=== PATIENT | female | born 1980 | race American Indian/Alaskan Native ===

== ENCOUNTER 2017-03-23 10:14 | Emergency (ER) | payer MEDICAID ==
[2017-03-23 11:17] LABS: Hematocrit 35.1 % (30.3-42.9); Hemoglobin 11.6 gm/dl (10.1-14.3); Mean Corpuscular HGB Conc 33 % (30-34); Mean Corpuscular Hemoglobin 29 pg (28-32); Mean Corpuscular Volume 89 fl (79-97); Red Blood Count 3.93 M/mm3 (3.65-5.03); Red Cell Distribution Width 14.5 % (13.2-15.2)
[2017-03-23 11:26] LABS: Alanine Aminotransferase 14 units/L (7-56); Albumin 3.7 g/dL (3.9-5); Alkaline Phosphatase 53 units/L (35-129); Anion Gap 18 mmol/L; BUN/Creatinine Ratio 15; Blood Urea Nitrogen 9 mg/dL (7-17); Calcium 8.5 mg/dL (8.4-10.2); Carbon Dioxide 23 mmol/L (22-30); Chloride 99.6 mmol/L (98-107); Glucose 87 mg/dL (65-100); Lipase 13 units/L (13-60); Potassium 4.3 mmol/L (3.6-5.0); Sodium 136 mmol/L (137-145); Total Protein 7.5 g/dL (6.3-8.2)
[2017-03-23 12:12] LABS: Basophils % (Manual) 0 % (0.0-1.8); Blastocytes % (Manual) 0 %; Diff Status Complete; Platelet Clumps 1+; Platelet Count 262 K/mm3 (140-440); Platelet Estimate Consistent w Auto; RBC Morphology Normal; White Blood Count 9.7 K/mm3 (4.5-11.0)
--- NOTE | 2017-03-23 14:48 | Ultrasound Report ---
ULTRASOUND OB LESS THAN 14 WEEKS ULTRASOUND OB LESS THAN 14 WEEKS ADD GESTATION ULTRASOUND OB TRANSVAGINAL HISTORY: Abdominal pain during , pelvic pain, cramping. COMPARISON: None. TECHNIQUE: Transabdominal and transvaginal ultrasound with color doppler interrogation. FINDINGS: Uterus: The uterus measures 11 x 6 x 7 cm. No uterine mass is identified. A twin gestation is identified. Fetus A has a heart rate of 165 beats per minute and estimated gestational age of 9 weeks, 0 days. Fetus B has a heart rate of 160 beats per minute and estimated gestational age of 9 weeks, 0 days. There is no evidence for subchorionic hemorrhage. The placenta is not clearly appreciated at this time. Amniotic fluid volume appears normal. Right ovary: 3.3 x 1.3 x 2.1 cm. There are 2 cysts in the right ovary measuring 1.5 cm and 1.9 cm. Left ovary: Not visualized. No pelvic fluid or mass is identified. Normal color doppler interrogation. IMPRESSION: Viable twin gestation as described. No acute abnormality is appreciated. Right ovarian cysts. The left ovary is not visualized.
--- NOTE | 2017-03-23 17:11 | Emergency Department Report ---
HPI - General Chief Complaint: Abdominal Pain Time Seen by Provider: 03/23/17 16:31 - HPI HPI: This is a 36-year-old female who presents to the emergency department with complaint of some lower abdominal pain and lower back pain has been going on for the past few days and the patient is about 8 weeks . With this she has G 12 P2 with 6 miscarriages and 4 previous abortions. The patient's VB NET DEVELOPER is Dr. Alisson Sarabia and she went to see Dr. Sarabia today but instead saw one of her partners and was told to come to the emergency department for further evaluation. She found out she was originally from a home test. She is currently taking vitamins. She has not taken anything for her symptoms prior to presentation. She denies any dysuria or vaginal bleeding. No recent travel or sick contacts at home. She denies any other past medical history. ED Past Medical Hx - Past Medical History Previous Medical History?: No - Surgical History Past Surgical History?: No - Social History Smoking Status: Never Smoker Substance Use Type: None - Medications Home Medications: Home Medications Medication Instructions Recorded Confirmed Last Taken Type Acetaminophen/Codeine [Tylenol #3] 1 tab PO Q6H PRN #10 tab 07/21/14 Unknown Rx Nitrofurantoin Saline/M-Cryst 100 mg PO Q12HR #14 capsule 07/21/14 Unknown Rx [Macrobid] ED Review of Systems ROS: Stated complaint: PREG,ABDOMINAL PAIN, LEAKAGE Other details as noted in HPI Comment: All other systems reviewed and negative Constitutional: denies: chills, fever Eyes: denies: eye pain, eye discharge, vision change ENT: denies: ear pain, throat pain Respiratory: denies: cough, shortness of breath, wheezing Cardiovascular: denies: chest pain, palpitations Gastrointestinal: abdominal pain. denies: vomiting Genitourinary: denies: urgency, dysuria, discharge Musculoskeletal: back pain. denies: arthralgia Skin: denies: rash, lesions Neurological: denies: headache, weakness, paresthesias Physical Exam - Physical Exam Vital Signs: Vital Signs 03/23/17 10:32 Temperature 98.1 F Pulse Rate 77 Blood Pressure 130/79 O2 Sat by Pulse 99 Oximetry Physical Exam: GENERAL: The patient is well-developed well-nourished. HENT: Normocephalic. Atraumatic. Patient has moist mucous membranes. EYES: Extraocular motions are intact. Pupils equal reactive to light bilaterally. NECK: Supple. Trachea is midline. CHEST/LUNGS: Clear to auscultation. There is no respiratory distress noted. HEART/CARDIOVASCULAR: Regular. There is no tachycardia. There is no murmur. ABDOMEN: Abdomen is soft, nontender. No guarding or rebound tenderness. Patient has normal bowel sounds. There is no abdominal distention. SKIN: Skin is warm and dry. NEURO: The patient is awake, alert, and oriented. The patient is cooperative. The patient has no focal neurologic deficits. The patient has normal speech and gait. MUSCULOSKELETAL: There is no tenderness or deformity. There is no limitation range of motion. There is no evidence of acute injury. ED Course Vital Signs 03/23/17 10:32 Temperature 98.1 F Pulse Rate 77 Blood Pressure 130/79 O2 Sat by Pulse 99 Oximetry ED Medical Decision Making - Lab Data Result diagrams: 03/23/17 10:47 03/23/17 10:47 - Radiology Data Radiology results: report reviewed ULTRASOUND OB LESS THAN 14 WEEKS ULTRASOUND OB LESS THAN 14 WEEKS ADD GESTATION ULTRASOUND OB TRANSVAGINAL HISTORY: Abdominal pain during , pelvic pain, cramping. COMPARISON: None. TECHNIQUE: Transabdominal and transvaginal ultrasound with color doppler interrogation. FINDINGS: Uterus: The uterus measures 11 x 6 x 7 cm. No uterine mass is identified. A twin gestation is identified. Fetus A has a heart rate of 165 beats per minute and estimated gestational age of 9 weeks, 0 days. Fetus B has a heart rate of 160 beats per minute and estimated gestational age of 9 weeks, 0 days. There is no evidence for subchorionic hemorrhage. The placenta is not clearly appreciated at this time. Amniotic fluid volume appears normal. Right ovary: 3.3 x 1.3 x 2.1 cm. There are 2 cysts in the right ovary measuring 1.5 cm and 1.9 cm. Left ovary: Not visualized. No pelvic fluid or mass is identified. Normal color doppler interrogation. IMPRESSION: Viable twin gestation as described. No acute abnormality is appreciated. Right ovarian cysts. The left ovary is not visualized. Transcribed By: TTR Dictated By: ASHTYN AGUILERA JR, MD Electronically Authenticated By: ASHTYN AGUILERA JR, MD Signed Date/Time: 03/23/17 1444 - Medical Decision Making This patient was originally sent in for evaluation of lower abdominal pain while . The patient says that she believes she was sent in because they thought she might have a ruptured sac as she said that she was feeling moisture within the vagina. However ultrasound shows a viable twin gestation and some right ovarian cysts. Everything appears intact and appropriate. Her labs are unremarkable including no urinary tract infection. She is Jas on vitamins and has good follow-up with Dr. Alisson Sarabia. Vital signs stable. She appears safe for discharge home at this time. She has been encouraged to follow up with her VB NET DEVELOPER and return to the emergency Department with any worsening of her symptoms, vaginal bleeding, or any acute distress. - Differential Diagnosis , threatened miscarriage, spontaneous miscarriage, UTI Critical Care Time: No Critical care attestation.: If time is entered above; I have spent that time in minutes in the direct care of this critically ill patient, excluding procedure time. ED Disposition Clinical Impression: Abdominal pain Qualifiers: Abdominal location: lower abdomen, unspecified Qualified Code(s): R10.30 - Lower abdominal pain, unspecified Qualifiers: Weeks of gestation: 9 weeks Qualified Code(s): Z3A.09 - 9 weeks gestation of Twin gestation in first trimester Qualifiers: Multiple gestation type: unspecified Qualified Code(s): O30.001 - Twin , unspecified number of placenta and unspecified number of amniotic sacs, first trimester Disposition: - TO HOME OR SELFCARE Is pt being admited?: No Condition: Stable Instructions: (ED), Abdominal Pain (ED) Additional Instructions: Please follow-up with your VB NET DEVELOPER in the next few days. Continue with your vitamins. You can take Tylenol every 4 hours, using weight-based dosing, as needed for discomfort. Do not take any other medications that are not prescribed by a physician. Return to the emergency department with any worsening of your symptoms or any acute distress. Referrals: PRIMARY MD CLYDE [Primary Care Provider] - 3-5 Days ALISSON SARABIA MD [Staff Physician] - 3-5 Days Forms: Work/School Release Form(ED) Time of Disposition: 18:35
[2017-03-23 17:41] VITALS: BP 109/69
[2017-03-23 18:14] LABS: Bilirubin,Urine NEG (Negative); Blood,Urine NEG (Negative); Ketones,Urine NEG (Negative); Leukocyte Esterase,Urine NEG (Negative); Nitrite,Urine NEG (Negative); Protein,Urine <15 mg/dL mg/dL (Negative); Urobilinogen,Urine < 2.0 mg/dL (<2.0)
== END 2017-03-23 19:06 | disposition home or self-care (01) ==
LOC: ED 10:14
DX: O26.891 Other specified pregnancy related conditions, first trimester (principal); R10.30 Lower abdominal pain, unspecified; Z3A.09 9 weeks gestation of pregnancy
CPT/HCPCS: 36415; 76801; 76802; 76817; 80053; 81001; 83690; 84702; 85007; 85025; 99284

== ENCOUNTER 2017-04-11 15:58 | Outpatient (CLI) | payer MEDICAID ==
--- NOTE | 2017-04-11 17:36 | Ultrasound Report ---
FINAL REPORT EXAM: US ABDOMEN LIMITED HISTORY: R UPPER QUADRANT ABDOMINAL PAIN , patient reportedly with first-trimester twins TECHNIQUE: Ultrasound examination of the abdomen PRIORS: None. FINDINGS: The visible portion of the following structures reveal: Liver: No focal lesion.No enlargement. Gallbladder: No pericholecystic fluid.No evidence of wall thickening.No calculus. Common bile duct: Normal caliber. Pancreas: No focal abnormality in the visible portion. Right kidney: No hydronephrosis.No solid mass.No definite calculus. Ascites: None Abdominal aorta: Normal caliber. IVC: Normal caliber. IMPRESSION: No evidence of acute pathology
== END 2017-04-11 15:59 | disposition home or self-care (01) ==
LOC: US 15:58
PROVIDERS: ATTEND Obstetrics & Gynecology
DX: O30.001 Twin pregnancy, unspecified number of placenta and unspecified number of amniotic sacs, first trimester (principal); O26.892 Other specified pregnancy related conditions, second trimester; R10.11 Right upper quadrant pain; Z3A.11 11 weeks gestation of pregnancy
CPT/HCPCS: 76705

== ENCOUNTER 2017-06-21 15:15 | Inpatient (IN) | payer MEDICAID ==
[2017-06-21] MEDS ORDERED: XYLOCAINE 2% INFILTRATI ONE (16:52)
[2017-06-21] MEDS ORDERED: COLACE PO PRN (17:32)
[2017-06-21] MEDS ORDERED: ZOFRAN IV PRN (17:32)
[2017-06-21] MEDS ORDERED: DEEP SEA NS PRN (17:32)
[2017-06-21] MEDS ORDERED: BENADRYL PO PRN (17:32)
--- NOTE | 2017-06-21 17:40 | History and Physical Report ---
History of Present Illness Date of admission: 06/21/17 15:15 Chief complaint: sent from [facility] clinic History of present illness: Pt is a 37 year old -Serbian female 10 0 2 RINA 10/26/17 by LMP c/w 9 wk [facility] sono with [place]-Di twin IUP who was incidentally noted to have a shortened cervix on 06/20/17 of 9.9 mm during routine obstetric visit. She was then seen on 06/21/17 by [facility] who noted a cervical length of 5 mm with dynamic changes with recommendation for hospitalization for the remainder of the and NICU consult. She denies contractions but does report pelvic pressure but denies vaginal bleeding or leakage of fluid. She has had care at [facility] since 9 wks complicated by morbid obesity, h/o gestational diabetes with normal early glucose screen, and GERD. [facility] Past History Past Medical History: GERD, other (Obesity ) Past Surgical History: no surgical history [employer] History: chlamydia (remote from this ) Family/Genetic History: cancer Social history: no significant social history - Obstetrical History Expected Date of Delivery: 10/26/17 Actual Gestation: 21 Week(s) 6 Day(s) : 13 Para: 2 Hx # Term Pregnancies: 2 Number of Pregnancies: 0 Spontaneous Abortions: 10 Induced : 0 Number of Living Children: 2 Medications and Allergies Allergies Allergy/AdvReac Type Severity Reaction Status Date / Time No Known Allergies Allergy Unverified 07/21/14 16:43 Home Medications Medication Instructions Recorded Confirmed Last Taken Type Acetaminophen/Codeine [Tylenol #3] 1 tab PO Q6H PRN #10 tab 07/21/14 Unknown Rx Nitrofurantoin [place]/M-Cryst 100 mg PO Q12HR #14 capsule 07/21/14 Unknown Rx [Macrobid] Active Meds: Active Medications Acetaminophen (Tylenol) 650 mg PO Q4H PRN PRN Reason: Pain MILD(1-3)/Fever >100.5/MCELROY Al Hydrox/Mg Hydrox/Simethicone (Alum-Mag Hydrox-Simeth [phone]/5ml) 30 ml PO Q6H PRN PRN Reason: Indigestion Diphenhydramine HCl (Benadryl) 25 mg PO Q6H PRN PRN Reason: Itching Docusate Sodium (Colace) 100 mg PO Q12H PRN PRN Reason: Constipation Lactated Ringer's (Lactated Ringers) 1,000 mls @ 125 mls/hr IV DIRECT JB Multivitamins/Iron/Calcium ( Vitamin) 1 each PO QDAY JB Ondansetron HCl (Zofran) 4 mg IV Q6H PRN PRN Reason: Nausea And Vomiting Simethicone (Mylicon) 80 mg PO Q6H PRN PRN Reason: Gas pain Sodium Chloride (Deep Sea) 2 spray NS Q4H PRN PRN Reason: Congestion Zolpidem Tartrate (Ambien) 10 mg PO ONCE PRN PRN Reason: Sleep Review of Systems All systems: negative - Physical Exam Abdomen: Positive: soft (gravid, obese) Genitourinary (Female): Positive: normal external genitalia Uterus: Positive: enlarged (gravid ) Extremities: Positive: normal - Obstetrical FHR: auscultation normal Uterine Contraction Monitor Mode: External Results All other labs normal. Assessment and Plan A: [place]-Di Twin IUP at 21w6d Incompetent Cervix Morbid Obesity H/o Gestational Diabetes GERD P: Admit to antepartum service NICU consult Complete bedrest Continue to closely monitor maternal and status
[2017-06-21 20:25] LABS: Basophils % (Auto) 0.2 % (0.0-1.8); Eosinophils # (Auto) 0.2 K/mm3 (0.0-0.4); Eosinophils % (Auto) 2.4 % (0.0-4.3); Hemoglobin 11.2 gm/dl (10.1-14.3); Lymphocytes # (Auto) 2.2 K/mm3 (1.2-5.4); Lymphocytes % (Auto) 22.4 % (13.4-35.0); Mean Corpuscular HGB Conc 33 % (30-34); Mean Corpuscular Hemoglobin 30 pg (28-32); Mean Corpuscular Volume 90 fl (79-97); Monocytes # (Auto) 0.4 K/mm3 (0.0-0.8); Platelet Count 318 K/mm3 (140-440); Red Blood Count 3.78 M/mm3 (3.65-5.03); Red Cell Distribution Width 14.4 % (13.2-15.2)
[2017-06-21] MEDS: AMBIEN PO PRN (21:09)
[2017-06-21] MEDS: COLACE PO SCH (21:09)
[2017-06-21] MEDS: LACTATED RINGERS 1,000 ML IV SCH (21:12)
[2017-06-22] MEDS: LACTATED RINGERS 1,000 ML IV SCH ×3 (04:05→20:31)
--- NOTE | 2017-06-22 06:42 | Consultation ---
History of Present Illness Consult date: 06/22/17 Past History Past Medical History: GERD, other (Obesity ) Past Surgical History: no surgical history ERP SPECIALIST History: chlamydia (remote from this ) Family/Genetic History: cancer - Obstetrical History : 13 Medications and Allergies Allergies Allergy/AdvReac Type Severity Reaction Status Date / Time No Known Allergies Allergy Unverified 07/21/14 16:43 Home Medications Medication Instructions Recorded Confirmed Last Taken Type Vit-Fe Fumar-FA [ 1 tab PO QDAY 06/21/17 06/21/17 3 Days Ago History Vitamin] ~06/18/17 Active Meds: Active Medications Acetaminophen (Tylenol) 650 mg PO Q4H PRN PRN Reason: Pain MILD(1-3)/Fever >100.5/MCELROY Al Hydrox/Mg Hydrox/Simethicone (Alum-Mag Hydrox-Simeth [phone]/5ml) 30 ml PO Q6H PRN PRN Reason: Indigestion Diphenhydramine HCl (Benadryl) 25 mg PO Q6H PRN PRN Reason: Itching Docusate Sodium (Colace) 100 mg PO BID [facility] Last Admin: 06/21/17 21:09 Dose: 100 mg Lactated Ringer's (Lactated Ringers) 1,000 mls @ 125 mls/hr IV DIRECT [facility] Last Admin: 06/22/17 04:05 Dose: 125 mls/hr Multivitamins/Iron/Calcium ( Vitamin) 1 each PO QDAY [facility] Ondansetron HCl (Zofran) 4 mg IV Q6H PRN PRN Reason: Nausea And Vomiting Simethicone (Mylicon) 80 mg PO Q6H PRN PRN Reason: Gas pain Sodium Chloride (Deep Sea) 2 spray NS Q4H PRN PRN Reason: Congestion Zolpidem Tartrate (Ambien) 10 mg PO ONCE PRN PRN Reason: Sleep Last Admin: 06/21/17 21:09 Dose: 10 mg - Vital Signs Vital signs: Vital Signs Temp Pulse Resp BP 97.6 F 89 16 103/65 06/21/17 18:42 06/21/17 18:42 06/21/17 18:42 06/21/17 18:42 Temp Pulse Resp BP Pulse Ox 97.4 F L 82 18 114/58 95 06/22/17 04:06 06/22/17 04:08 06/22/17 04:06 06/22/17 04:08 06/22/17 04:08 Results Result Diagrams: 06/21/17 18:20 Abnormal lab results 06/21/17 Range/Units 18:20 Seg Neutrophils % 71.0 H (40.0-70.0) % All other labs normal. Assessment and Plan AMFM Pt seen Full consult to follow
--- NOTE | 2017-06-22 08:27 | Progress Note ---
Assessment and Plan A: [place]-Di Twin IUP at 22w0d Incompetent Cervix- cervical length 5 mm on 06/21/17 Morbid Obesity GERD P: Continue inpatient management with complete bed rest. Follow up M recommendations. Consult appreciated. Subjective - Subjective Date of service: 06/22/17 Principal diagnosis: [place]-Di Twin IUP at 22w0d, Incompetent Cervix, Morbid Obesity Interval history: No overnight events. Patient reports: movement normal, no new complaints, no loss of fluid, no vaginal bleeding, no contractions Objective - Vital Signs Vital Signs: Vital Signs - 12hr 06/21/17 06/21/17 06/21/17 20:32 20:41 20:42 Temperature Pulse Rate 102 H 102 H 112 H Respiratory Rate Blood Pressure Blood Pressure [Left] O2 Sat by Pulse 100 86 90 Oximetry 06/21/17 06/21/17 06/21/17 20:47 20:52 20:55 Temperature Pulse Rate 101 H 108 H 90 Respiratory Rate Blood Pressure 119/71 Blood Pressure [Left] O2 Sat by Pulse 98 97 Oximetry 06/21/17 06/21/17 06/21/17 20:57 21:02 21:07 Temperature Pulse Rate 96 H 92 H 97 H Respiratory Rate Blood Pressure Blood Pressure [Left] O2 Sat by Pulse 96 97 97 Oximetry 06/21/17 06/21/17 06/22/17 21:12 21:17 00:18 Temperature 97.2 F L Pulse Rate 84 100 H Respiratory 20 Rate Blood Pressure Blood Pressure [Left] O2 Sat by Pulse 96 96 Oximetry 06/22/17 06/22/17 06/22/17 00:20 00:21 04:06 Temperature 97.4 F L Pulse Rate 100 H 104 H Respiratory 18 Rate Blood Pressure 111/72 Blood Pressure [Left] O2 Sat by Pulse 97 Oximetry 06/22/17 06/22/17 06/22/17 04:08 07:38 07:41 Temperature 98.2 F Pulse Rate 82 89 89 Respiratory 22 Rate Blood Pressure 114/58 104/71 Blood Pressure 104/71 [Left] O2 Sat by Pulse 95 Oximetry - Exam Breasts: deferred Cardiovascular: Regular rate Lungs: Clear to auscultation Abdomen: Present: soft (obese, gravid ) Uterus: Present: normal (enlarged ) FHR: auscultation normal Uterine Contraction Monitor Mode: External Uterine Contraction Pattern: Absent Uterine Tone Measurement Phase: Resting - Labs Labs: Abnormal Labs 06/21/17 18:20 Seg Neutrophils % 71.0 H Laboratory Results - last 24 hr 06/21/17 06/21/17 18:20 18:20 WBC 9.7 RBC 3.78 Hgb 11.2 Hct 34.0 MCV 90 MCH 30 MCHC 33 RDW 14.4 Plt Count 318 Lymph % (Auto) 22.4 [place] % (Auto) 4.0 Eos % (Auto) 2.4 Baso % (Auto) 0.2 Lymph # 2.2 [place] # 0.4 Eos # 0.2 Baso # 0.0 Seg Neutrophils % 71.0 H Seg Neutrophils # 6.9 Blood Type A POSITIVE Antibody Screen Negative
[2017-06-22] MEDS: TYLENOL PO PRN ×2 (15:59→20:35)
[2017-06-22] MEDS: COLACE PO SCH (16:00)
[2017-06-22] MEDS: PRENATAL VITAMIN PO SCH (16:00)
[2017-06-22] MEDS: AMBIEN PO PRN (23:34)
[2017-06-23] MEDS: LACTATED RINGERS 1,000 ML IV SCH ×3 (04:08→22:53)
--- NOTE | 2017-06-23 08:14 | Progress Note ---
Assessment and Plan : [place]-Di Twin IUP at 22w0d Incompetent Cervix- cervical length 5 mm on 06/21/17 Morbid Obesity GERD P: Continue inpatient management. NICU consultation to discuss resuscitation. Steroids for FLM to be administered based on the patient's preference for resuscitation Subjective - Subjective Principal diagnosis: [place]-Di Twin IUP at 22w0d, Incompetent Cervix, Morbid Obesity Interval history: No complaints. Good movement x2 Denies contractions or pelvic pressure. Patient reports: movement normal, no new complaints, no loss of fluid, no vaginal bleeding, no contractions Objective - Vital Signs Vital Signs: Vital Signs - 12hr 06/22/17 06/22/17 06/23/17 23:35 23:38 04:50 Temperature 97.3 F L 98.2 F Pulse Rate 79 79 90 Respiratory 12 13 Rate Blood Pressure 114/73 Blood Pressure 114/73 126/61 [Left] 06/23/17 04:54 Temperature Pulse Rate 90 Respiratory Rate Blood Pressure 126/61 Blood Pressure [Left] - Exam Abdomen: Present: soft Extremities: normal - Labs Labs: Abnormal Labs 06/21/17 18:20 Seg Neutrophils % 71.0 H
[2017-06-23] MEDS: COLACE PO SCH (11:25)
[2017-06-23] MEDS: PRENATAL VITAMIN PO SCH (11:25)
[2017-06-23] MEDS: AMBIEN PO PRN (22:39)
[2017-06-24] MEDS: TYLENOL PO PRN (06:28)
[2017-06-24] MEDS: LACTATED RINGERS 1,000 ML IV SCH ×3 (06:50→22:16)
--- NOTE | 2017-06-24 10:39 | Progress Note ---
Assessment and Plan Twin IUP at 22 2/7 weeks with EDC 10/26/17. Patient wants to shower, but was told not to. Would prefer patient to be past 23 weeks. Continue current management. Subjective - Subjective Date of service: 06/24/17 Principal diagnosis: [place]-Di Twin IUP at 22w0d, Incompetent Cervix, Morbid Obesity Patient reports: movement normal, no new complaints, no loss of fluid, no vaginal bleeding, no contractions Objective - Vital Signs Vital Signs: Vital Signs - 12hr 06/23/17 06/23/17 06/23/17 22:40 22:44 22:45 Temperature 96.5 F L Pulse Rate 75 77 76 Respiratory 13 Rate Blood Pressure 114/68 Blood Pressure 114/68 [Left] O2 Sat by Pulse 100 Oximetry 06/23/17 06/24/17 22:50 04:24 Temperature Pulse Rate 78 92 H Respiratory Rate Blood Pressure 104/57 Blood Pressure [Left] O2 Sat by Pulse 100 Oximetry - Exam Breasts: deferred Cardiovascular: Regular rate, Normal S1, Normal S2 Lungs: Clear to auscultation, Normal air movement Abdomen: Present: normal appearance, soft, normal bowel sounds Uterus: Present: normal, fundal height above umbilicus FHR: auscultation normal Uterine Contraction Pattern: Absent - Labs Labs: Abnormal Labs 06/21/17 18:20 Seg Neutrophils % 71.0 H
[2017-06-24] MEDS: COLACE PO SCH ×2 (14:57→22:16)
[2017-06-24] MEDS: PRENATAL VITAMIN PO SCH (14:58)
[2017-06-24] MEDS: AMBIEN PO PRN (22:17)
[2017-06-25] MEDS: LACTATED RINGERS 1,000 ML IV SCH ×3 (06:19→22:03)
[2017-06-25] MEDS: COLACE PO SCH ×2 (08:36→22:00)
[2017-06-25] MEDS: PRENATAL VITAMIN PO SCH (08:36)
--- NOTE | 2017-06-25 08:54 | Progress Note ---
Assessment and Plan [place]-Di Twin IUP at 22w2d Incompetent Cervix- cervical length 0.5cm 06/21 Morbid Obesity GERD P: Will Continue inpatient management. Steroids for FLM to be administered based on the patient's preference for resuscitation ( desires at 23 weeks) Subjective - Subjective Date of service: 06/25/17 Principal diagnosis: [place]-Di Twin IUP at 22w+d, Incompetent Cervix, Morbid Obesity Patient reports: movement normal, no new complaints, no loss of fluid, no vaginal bleeding, no contractions Objective - Vital Signs Vital Signs: Vital Signs - 12hr 06/24/17 06/24/17 06/24/17 22:20 22:25 22:30 Temperature 98.2 F Pulse Rate 85 79 85 Respiratory 18 Rate Blood Pressure 116/62 Blood Pressure 116/62 [Left] O2 Sat by Pulse 97 98 99 Oximetry 06/25/17 06/25/17 06/25/17 02:18 02:21 06:12 Temperature 98 F Pulse Rate 88 88 81 Respiratory 16 Rate Blood Pressure 102/51 102/57 Blood Pressure 102/81 [Left] O2 Sat by Pulse Oximetry 06/25/17 06/25/17 06/25/17 06:22 06:27 08:37 Temperature 98.7 F Pulse Rate 101 H 84 92 H Respiratory 16 Rate Blood Pressure 106/56 Blood Pressure 102/57 [Left] O2 Sat by Pulse 95 97 100 Oximetry - Exam Breasts: normal Cardiovascular: Regular rate, Normal S1 Lungs: Clear to auscultation, Normal air movement Abdomen: Present: normal appearance, soft, normal bowel sounds. Absent: distention, tenderness, guarding Vulva: both: normal Uterus: Present: normal, firm. Absent: bogginess, tenderness FHR: auscultation normal Uterine Contraction Monitor Mode: External Uterine Contraction Pattern: Absent Uterine Tone Measurement Phase: Resting - Labs Labs: Abnormal Labs 06/21/17 18:20 Seg Neutrophils % 71.0 H
[2017-06-25] MEDS: AMBIEN PO PRN (22:00)
[2017-06-26] MEDS: LACTATED RINGERS 1,000 ML IV SCH ×2 (05:30→16:05)
--- NOTE | 2017-06-26 09:06 | Progress Note ---
Assessment and Plan - Patient Problems (1) Incompetent cervix during second trimester, antepartum Current Visit: Yes Status: Acute Plan to address problem: continue expectant management (2) Monochorionic diamniotic twin gestation in second trimester Current Visit: Yes Status: Acute Subjective - Subjective Date of service: 06/26/17 Principal diagnosis: [place]-Di Twin IUP at 22w+d, Incompetent Cervix, Morbid Obesity Interval history: Patient is without complaints. She denies leakage of fluid or vaginal bleeding. She is not experiencing any contractions. Patient made aware this will be a prolonged hospitalization. She appears motivated and confident. Patient reports: movement normal, no new complaints, no loss of fluid, no vaginal bleeding, no contractions Objective - Vital Signs Vital Signs: Vital Signs - 12hr 06/26/17 06/26/17 06/26/17 00:06 04:15 08:15 Temperature 97.6 F 97.5 F L Pulse Rate 80 85 77 Respiratory 18 18 Rate Blood Pressure 96/53 110/54 86/52 [Left] O2 Sat by Pulse 97 Oximetry - Labs Labs: Abnormal Labs 06/21/17 18:20 Seg Neutrophils % 71.0 H
[2017-06-26] MEDS: PRENATAL VITAMIN PO SCH (10:43)
[2017-06-26] MEDS: COLACE PO SCH ×3 (10:43→22:31)
[2017-06-26] MEDS: AMBIEN PO PRN (22:31)
--- NOTE | 2017-06-27 10:39 | Progress Note ---
Assessment and Plan : [place]-Di Twin IUP at 22w4d Incompetent Cervix- cervical length 5 mm on 06/21/17 Morbid Obesity GERD P: Continue inpatient management. NICU consultation to discuss resuscitation. Steroids for FLM to be administered based on the patient's preference for resuscitation Subjective - Subjective Principal diagnosis: [place]-Di Twin IUP at 22w+d, Incompetent Cervix, Morbid Obesity Interval history: No complaints. Good movement x2 Denies contractions or pelvic pressure. Patient reports: movement normal, no new complaints, no loss of fluid, no vaginal bleeding, no contractions Objective - Vital Signs Vital Signs: Vital Signs - 12hr 06/26/17 06/27/17 06/27/17 23:50 03:55 08:51 Temperature 98.1 F 98.4 F 97.1 F L Pulse Rate 90 80 86 Respiratory 18 18 24 Rate Blood Pressure 102/56 105/70 93/52 [Left] O2 Sat by Pulse 97 96 Oximetry - Exam Abdomen: Present: soft Extremities: normal - Labs Labs: Abnormal Labs 06/21/17 18:20 Seg Neutrophils % 71.0 H
[2017-06-27] MEDS: COLACE PO SCH ×2 (11:11→22:34)
--- NOTE | 2017-06-27 12:05 | Progress Note ---
Assessment and Plan A: [place]-Di Twin IUP at 22w5d Incompetent Cervix- cervical length 5 mm on 06/21/17 Morbid Obesity GERD P: Continue inpatient management with complete bed rest. Follow up MFM recommendations. Consult appreciated. Betamethasone course at 23 wks Subjective - Subjective Date of service: 06/27/17 Principal diagnosis: [place]-Di Twin IUP at 22w+d, Incompetent Cervix, Morbid Obesity Interval history: No overnight events. Patient reports: movement normal, no new complaints, no loss of fluid, no vaginal bleeding, no contractions Objective - Vital Signs Vital Signs: Vital Signs - 12hr 06/27/17 06/27/17 06/27/17 03:55 08:51 11:13 Temperature 98.4 F 97.1 F L 95.8 F L Pulse Rate 80 86 99 H Respiratory 18 24 20 Rate Blood Pressure 105/70 93/52 100/55 [Left] O2 Sat by Pulse 97 96 Oximetry - Exam Breasts: deferred Cardiovascular: Regular rate Lungs: Clear to auscultation Abdomen: Present: soft (obese, gravid ) Uterus: Present: normal FHR: auscultation normal Uterine Contraction Monitor Mode: External Uterine Contraction Pattern: Absent Uterine Tone Measurement Phase: Resting Extremities: normal - Labs Labs: Abnormal Labs 06/21/17 18:20 Seg Neutrophils % 71.0 H
[2017-06-27] MEDS: PRENATAL VITAMIN PO SCH (16:05)
[2017-06-27] MEDS: AMBIEN PO PRN (22:34)
--- NOTE | 2017-06-28 07:10 | Progress Note ---
Assessment and Plan [place] Twin IUP at 22w6d ( LMP per OB was 01/19/2017 EDC 10/26/2017 ) Incompetent Cervix- cervical length 5 mm on 06/21/17 Morbid Obesity GERD P: Continue to monitor for labor , ROM NICU consultation is needed if not previously performed Steroids for FLM to be administered based on the patient's preference for resuscitation - 23 weeks if desired by patient Subjective - Subjective Date of service: 06/28/17 Principal diagnosis: [place] Twin IUP at 22w 6d, Incompetent Cervix, Morbid Obesity Interval history: No new complaints Patient reports: movement normal, no new complaints, no loss of fluid, no vaginal bleeding, no contractions Objective - Vital Signs Vital Signs: Vital Signs - 12hr 06/27/17 19:32 Temperature 97.3 F L Pulse Rate 96 H Respiratory 12 Rate Blood Pressure 106/64 [Left] O2 Sat by Pulse 97 Oximetry - Exam Abdomen: Present: normal appearance, soft (no palpable contractions) FHR comments: has not had heart tones performed as yet Extremities: normal - Labs Labs: Abnormal Labs 06/21/17 18:20 Seg Neutrophils % 71.0 H
--- NOTE | 2017-06-28 07:47 | Progress Note ---
Assessment and Plan A: [place]-Di Twin IUP at 22w6d Incompetent Cervix- cervical length 5 mm on 06/21/17 Morbid Obesity GERD P: Continue inpatient management with complete bed rest. Follow up MFM recommendations. Consult appreciated. Betamethasone course at 23 wks Subjective - Subjective Date of service: 06/28/17 Principal diagnosis: [place]-Di Twin IUP at 22w 6d, Incompetent Cervix, Morbid Obesity Interval history: No overnight events. Patient reports: movement normal, no new complaints, no loss of fluid, no vaginal bleeding, no contractions Objective - Exam Breasts: deferred Cardiovascular: Regular rate Lungs: Clear to auscultation Abdomen: Present: soft (obese, gravid ) Uterus: Present: normal (gravid ) Uterine Contraction Monitor Mode: External Uterine Contraction Pattern: Absent Uterine Tone Measurement Phase: Resting Extremities: normal - Labs Labs: Abnormal Labs 06/21/17 18:20 Seg Neutrophils % 71.0 H
[2017-06-28] MEDS: PRENATAL VITAMIN PO SCH ×2 (08:44→08:45)
[2017-06-28] MEDS: COLACE PO SCH ×2 (08:44→22:38)
[2017-06-28] MEDS: TYLENOL PO PRN (11:23)
[2017-06-28] MEDS: AMBIEN PO PRN (22:38)
[2017-06-29] MEDS: PRENATAL VITAMIN PO SCH (09:33)
[2017-06-29] MEDS: COLACE PO SCH ×2 (09:33→23:31)
--- NOTE | 2017-06-29 09:34 | Progress Note ---
Assessment and Plan A: [place]-Di Twin IUP at 23weeks Incompetent Cervix- cervical length 5 mm on 06/21/17 Morbid Obesity GERD P: Continue inpatient management with complete bed rest. Follow up MFM recommendations. Consult appreciated. Betamethasone course at 23 wks today Subjective - Subjective Date of service: 06/29/17 Principal diagnosis: [place]-Di Twin IUP at 22w 6d, Incompetent Cervix, Morbid Obesity Patient reports: movement normal, no new complaints, no loss of fluid, no vaginal bleeding, no contractions Objective - Vital Signs Vital Signs: Vital Signs - 12hr 06/29/17 06:23 Temperature 97.7 F Pulse Rate 105 H Respiratory 13 Rate Blood Pressure 109/67 [Left] O2 Sat by Pulse 97 Oximetry - Exam Breasts: normal Cardiovascular: Regular rate, Normal S1 Lungs: Clear to auscultation, Normal air movement Abdomen: Present: normal appearance, soft, normal bowel sounds. Absent: distention, tenderness, guarding Vulva: both: normal Uterus: Present: normal, firm FHR: category 1 Uterine Contraction Pattern: Absent Uterine Tone Measurement Phase: Resting Extremities: normal Deep Tendon Reflex Grade: Normal +2 - Labs Labs: Abnormal Labs 06/21/17 18:20 Seg Neutrophils % 71.0 H
[2017-06-29] MEDS: CELESTONE SOLUSPAN IM SCH (10:16)
[2017-06-29] MEDS: AMBIEN PO PRN (23:31)
--- NOTE | 2017-06-30 08:16 | Progress Note ---
Assessment and Plan Assess: 1. IUP 23w0d 2. mono/di twins 3. short cervix Plan: 1. Steroids planned at 23 weeks. 2. Tocolysis if indicated x48 hours in order to complete steroids. 3. Bedpan use is not required; would allow pt. to use bedside commode or bathroom. Subjective - Subjective Date of service: 06/30/17 Principal diagnosis: IUP at 23w, mono/di twins, short cervix, Patient reports: movement normal, no new complaints, no loss of fluid, no vaginal bleeding, no contractions Objective - Vital Signs Vital Signs: Vital Signs - 12hr 06/29/17 06/29/17 22:00 22:30 Temperature 98.4 F Pulse Rate 101 H 101 H Respiratory 20 Rate Blood Pressure 100/59 Blood Pressure 100/59 [Left] - Exam Narrative Exam: Appears well--aroused from sleep. Abdomen: Present: soft. Absent: tenderness - Labs Labs:
[2017-06-30] MEDS: COLACE PO SCH ×2 (10:25→23:32)
[2017-06-30] MEDS: PRENATAL VITAMIN PO SCH (10:25)
[2017-06-30] MEDS: CELESTONE SOLUSPAN IM SCH (10:38)
--- NOTE | 2017-06-30 12:25 | Consultation ---
History of Present Illness Consult date: 06/29/17 Reason for consult: prematurity (23 week mono di twin gestation with incompetent cervix) History of present illness: Late entry: Mother is a 37 year A10 with incompetent cervix, admitted for monitoring till delivery. I have spoken to the OB team requesting this consult and met with mother with her bedside nurse present. I explained that outcomes for twins at 23 weeks gestation is dismal with poor neurodevelopmental outcomes, however outcomes and survival improve with increasing gestational age. We discussed delivery room resuscitation, the need for intubation and mechanical ventilation , and the risk of severe IVH which increases with extensive delivery room resuscitation especially if chest compressions are required. Mother expressed understanding of the information presented and asked appropriate questions which were answered to the best of my ability. I asked mother to think carefully about the extent of resuscitation she would want for her babies should they be delivered at 23 weeks gestation and the need to comply with her OBs instructions to increase the chances of prolonging her for higher probability of better outcomes was emphasized. Documentation - Maternal Info Maternal Blood Type: A (+) positive HbsAg: Negative HIV: Negative RPR/VDRL: Non-reactive Chlamydia: Negative Gonorrhea: Negative Herpes: Negative Group Beta Strep: Not Complete Rubella: Immune - information: Height 5 ft 2 in Medications and Allergies Allergies Allergy/AdvReac Type Severity Reaction Status Date / Time No Known Allergies Allergy Unverified 07/21/14 16:43 Home Medications Medication Instructions Recorded Confirmed Last Taken Type Vit-Fe Fumar-FA [ 1 tab PO QDAY 06/21/17 06/21/17 3 Days Ago History Vitamin] ~06/18/17 Active Meds: Active Medications Acetaminophen (Tylenol) 650 mg PO Q4H PRN PRN Reason: Pain MILD(1-3)/Fever >100.5/MCELROY Last Admin: 06/28/17 11:23 Dose: 650 mg Al Hydrox/Mg Hydrox/Simethicone (Alum-Mag Hydrox-Simeth [phone]/5ml) 30 ml PO Q6H PRN PRN Reason: Indigestion Diphenhydramine HCl (Benadryl) 25 mg PO Q6H PRN PRN Reason: Itching Docusate Sodium (Colace) 100 mg PO BID JB Last Admin: 06/30/17 10:25 Dose: 100 mg Multivitamins/Iron/Calcium ( Vitamin) 1 each PO QDAY JB Last Admin: 06/30/17 10:25 Dose: 1 each Ondansetron HCl (Zofran) 4 mg IV Q6H PRN PRN Reason: Nausea And Vomiting Simethicone (Mylicon) 80 mg PO Q6H PRN PRN Reason: Gas pain Sodium Chloride (Deep Sea) 2 spray NS Q4H PRN PRN Reason: Congestion Zolpidem Tartrate (Ambien) 10 mg PO ONCE PRN PRN Reason: Sleep Last Admin: 06/29/17 23:31 Dose: 10 mg Exam Vital Signs Temp Pulse Resp BP 97.6 F 89 16 103/65 06/21/17 18:42 06/21/17 18:42 06/21/17 18:42 06/21/17 18:42 Temp Pulse Resp BP Pulse Ox 98.1 F 96 H 16 121/75 100 06/30/17 10:42 06/30/17 10:45 06/30/17 10:42 06/30/17 10:45 06/30/17 10:42 Results - Laboratory Findings 06/21/17 18:20 Assessment and Plan Agree with steroids Will continue to follow up with mother as progresses Will attend delivery whenever indicated as determined by primary OB team Please call NICU with questions
--- NOTE | 2017-06-30 12:50 | Progress Note ---
Assessment and Plan A: [place]-Di Twin IUP at 23weeks Incompetent Cervix- cervical length 5 mm on 06/21/17 Morbid Obesity GERD P: Continue inpatient management with complete bed rest. Follow up [facility] recommendations. Consult appreciated. Betamethasone course complted today may use tocolysis if any ctx for 48 hrs per M Subjective - Subjective Date of service: 06/30/17 Principal diagnosis: IUP at 23w, mono/di twins, short cervix, Patient reports: movement normal, no new complaints, no loss of fluid, no vaginal bleeding, no contractions Objective - Vital Signs Vital Signs: Vital Signs - 12hr 06/30/17 06/30/17 10:42 10:45 Temperature 98.1 F Pulse Rate 96 H 96 H Respiratory 16 Rate Blood Pressure 121/75 Blood Pressure 121/75 [Left] O2 Sat by Pulse 100 Oximetry - Exam Cardiovascular: Regular rate, Normal S1 Lungs: Normal air movement Abdomen: Present: normal appearance, soft. Absent: distention, tenderness, guarding Uterus: Present: normal, firm - Labs Labs: Abnormal Labs 06/21/17 18:20 Seg Neutrophils % 71.0 H
[2017-06-30] MEDS: ALUM-MAG HYDROX-SIMETH 200-200-20MG/5ML PO PRN (23:31)
[2017-06-30] MEDS: AMBIEN PO PRN (23:32)
--- NOTE | 2017-07-01 08:34 | Progress Note ---
Assessment and Plan A: [place]-Di Twin IUP at 23+2 weeks Incompetent Cervix- cervical length 5 mm on 06/21/17 Morbid Obesity GERD P: Continue inpatient management with complete bed rest. Follow up [facility] recommendations. Consult appreciated. Betamethasone course completed 06/30/17 Subjective - Subjective Date of service: 07/01/17 Principal diagnosis: IUP at 23w, mono/di twins, short cervix, Patient reports: movement normal, no new complaints, no loss of fluid, no vaginal bleeding, no contractions Objective - Vital Signs Vital Signs: Vital Signs - 12hr 06/30/17 06/30/17 07/01/17 20:27 23:15 03:28 Temperature 97.7 F 97.6 F Pulse Rate 92 H 93 H 92 H Respiratory 18 18 Rate Blood Pressure 116/79 118/60 Blood Pressure 116/79 118/60 [Left] O2 Sat by Pulse 97 Oximetry 07/01/17 03:33 Temperature Pulse Rate 92 H Respiratory Rate Blood Pressure Blood Pressure [Left] O2 Sat by Pulse 97 Oximetry - Exam Breasts: normal Cardiovascular: Regular rate, Normal S1 Lungs: Clear to auscultation, Normal air movement Abdomen: Present: normal appearance, soft, normal bowel sounds. Absent: distention, tenderness, guarding Vulva: both: normal Uterus: Present: normal, firm. Absent: bogginess, tenderness FHR: auscultation normal Uterine Contraction Pattern: Absent Extremities: normal Deep Tendon Reflex Grade: Normal +2 - Labs Labs: Abnormal Labs 06/21/17 18:20 Seg Neutrophils % 71.0 H
[2017-07-01] MEDS: PRENATAL VITAMIN PO SCH (10:29)
[2017-07-01] MEDS: COLACE PO SCH ×2 (10:29→22:12)
[2017-07-01] MEDS: ALUM-MAG HYDROX-SIMETH 200-200-20MG/5ML PO PRN ×2 (16:32→22:14)
[2017-07-01] MEDS: MYLICON PO PRN (19:59)
[2017-07-01] MEDS: AMBIEN PO PRN (22:12)
--- NOTE | 2017-07-02 08:25 | Progress Note ---
Assessment and Plan A: [place]-Di Twin IUP at 23w3d Incompetent Cervix- cervical length 5 mm on 06/21/17 Morbid Obesity GERD P: Continue inpatient management with complete bed rest. Follow up MFM recommendations. Consult appreciated. Betamethasone course completed 06/30/17 Clarify ultrasound frequency. Subjective - Subjective Date of service: 07/02/17 Principal diagnosis: [place]-di twins at 23w3d; Shortened Cervix Interval history: No overnight events. Patient reports: movement normal, no new complaints, no loss of fluid, no vaginal bleeding, no contractions Objective - Vital Signs Vital Signs: Vital Signs - 12hr 07/01/17 07/01/17 07/02/17 23:49 23:59 02:40 Temperature 98 F Pulse Rate 97 H 97 H 83 Respiratory 16 Rate Blood Pressure 105/54 Blood Pressure 105/54 [Left] O2 Sat by Pulse 97 95 Oximetry 07/02/17 07/02/17 07/02/17 02:45 02:50 02:55 Temperature Pulse Rate 84 90 90 Respiratory Rate Blood Pressure Blood Pressure [Left] O2 Sat by Pulse 96 93 93 Oximetry 07/02/17 07/02/17 07/02/17 03:00 03:05 03:10 Temperature Pulse Rate 67 86 81 Respiratory Rate Blood Pressure Blood Pressure [Left] O2 Sat by Pulse 88 96 96 Oximetry 07/02/17 07/02/17 07/02/17 03:15 03:17 03:19 Temperature 98.1 F Pulse Rate 83 85 Respiratory 20 Rate Blood Pressure 103/51 Blood Pressure [Left] O2 Sat by Pulse 96 Oximetry - Exam Breasts: deferred Cardiovascular: Regular rate Lungs: Clear to auscultation Abdomen: Present: soft (obese, gravid ). Absent: tenderness Uterus: Present: normal (gravid ) FHR: auscultation normal Uterine Contraction Monitor Mode: External Uterine Contraction Pattern: Absent Uterine Tone Measurement Phase: Resting Uterine Contraction Intensity: Mild Extremities: normal - Labs Labs: Abnormal Labs 06/21/17 18:20 Seg Neutrophils % 71.0 H
[2017-07-02] MEDS: COLACE PO SCH ×2 (10:01→21:41)
[2017-07-02] MEDS: PRENATAL VITAMIN PO SCH ×2 (10:02→10:03)
--- NOTE | 2017-07-02 13:17 | Progress Note ---
Assessment and Plan 1. IUP at 23 3/7 weeks' 2. Monochorionic/diamniotic twins 3. Cervical shortening 4. pyelectasis [A&B] 1. Continue expectant management 2. Evaluate AFV concordance weekly 3. Evaluate EFW q 2 weeks Subjective - Subjective Date of service: 07/02/17 (Feeling well, fetuses active; denied contractions) Principal diagnosis: [place]-di twins at 23w3d; Shortened Cervix Patient reports: movement normal, no new complaints, no loss of fluid, no vaginal bleeding, no contractions Objective - Vital Signs Vital Signs: Vital Signs - 12hr 07/02/17 07/02/17 07/02/17 02:40 02:45 02:50 Temperature Pulse Rate 83 84 90 Respiratory Rate Blood Pressure O2 Sat by Pulse 95 96 93 Oximetry 07/02/17 07/02/17 07/02/17 02:55 03:00 03:05 Temperature Pulse Rate 90 67 86 Respiratory Rate Blood Pressure O2 Sat by Pulse 93 88 96 Oximetry 07/02/17 07/02/17 07/02/17 03:10 03:15 03:17 Temperature Pulse Rate 81 83 85 Respiratory Rate Blood Pressure 103/51 O2 Sat by Pulse 96 96 Oximetry 07/02/17 07/02/17 03:19 09:52 Temperature 98.1 F Pulse Rate 93 H Respiratory 20 Rate Blood Pressure 100/56 O2 Sat by Pulse Oximetry - Exam Narrative Exam: Abd soft, nontender; FHT's not currently monitored - Labs Labs: Abnormal Labs 06/21/17 18:20 Seg Neutrophils % 71.0 H
[2017-07-02] MEDS: AMBIEN PO PRN (21:41)
--- NOTE | 2017-07-03 08:01 | Ultrasound Report ---
ULTRASOUND OB LIMITED History: Twin gestation, evaluated amniotic fluid, short cervix Technique: Transabdominal ultrasound with Doppler interrogation. Gestation: Baby A Position: Cephalic Amniotic Fluid: Within normal limits. Largest vertical pocket measures 5.5 cm Heart Rate: 152 BPM Gestation: Baby B Position: Cephalic Amniotic Fluid: Within normal limits. Largest vertical pocket measures 3.7 cm Heart Rate: 138 BPM Cervical length: 5.3 cm (Normal > 3 cm)
--- NOTE | 2017-07-03 09:02 | Progress Note ---
Assessment and Plan - Patient Problems (1) Incompetent cervix during second trimester, antepartum Current Visit: Yes Status: Acute Plan to address problem: continue current management (2) Monochorionic diamniotic twin gestation in second trimester Current Visit: Yes Status: Acute Subjective - Subjective Date of service: 07/03/17 Principal diagnosis: [place]-di twins at 23w4d; Shortened Cervix Interval history: Patient is without complaints. Ultrasound yesterday demonstrated adequate fluid. Twins in vertex presentation. Ultrasound was performed abdominally. Indicated a cervical length of 5.3cm which is likely an error. Patient was originally admitted with a cervical length of 5mm. She denies contractions or leakage of fluid. Patient reports: movement normal, no new complaints, no loss of fluid, no vaginal bleeding, no contractions Objective - Vital Signs Vital Signs: Vital Signs - 12hr 07/02/17 07/03/17 07/03/17 23:28 03:24 03:25 Temperature 98.2 F 98.0 F Pulse Rate 96 H 98 H 95 H Respiratory 20 20 Rate Blood Pressure 109/61 95/53 Blood Pressure 109/61 95/53 [Left] O2 Sat by Pulse 97 97 97 Oximetry - Labs Labs: Abnormal Labs 06/21/17 18:20 Seg Neutrophils % 71.0 H
[2017-07-03] MEDS: PRENATAL VITAMIN PO SCH (10:05)
[2017-07-03] MEDS: COLACE PO SCH ×2 (10:07→21:57)
[2017-07-03] MEDS: AMBIEN PO PRN (21:56)
[2017-07-03] MEDS: ALUM-MAG HYDROX-SIMETH 200-200-20MG/5ML PO PRN (22:00)
--- NOTE | 2017-07-04 07:40 | Progress Note ---
Assessment and Plan 1. IUP at 23 4/7 weeks-stable 2. Monochorionic/diamniotic twins 3. Cervical shortening 4. pyelectasis 1. Continue expectant management 2. Per MFM evaluate DARRION weekly and efw every 2 weeks 3. continue present mgt Subjective - Subjective Date of service: 07/04/17 Principal diagnosis: [place]-di twins at 23w5d; Shortened Cervix Patient reports: movement normal, no new complaints, no loss of fluid, no vaginal bleeding, no contractions Objective - Vital Signs Vital Signs: Vital Signs - 12hr 07/03/17 07/03/17 07/04/17 19:53 20:02 00:02 Temperature 98.4 F 98.6 F Pulse Rate 92 H 92 H 109 H Respiratory 18 18 Rate Blood Pressure 121/64 102/63 Blood Pressure 121/64 102/63 [Left] O2 Sat by Pulse 98 97 Oximetry 07/04/17 07/04/17 07/04/17 00:03 04:11 04:12 Temperature 98.3 F Pulse Rate 102 H 97 H 97 H Respiratory 18 Rate Blood Pressure 111/56 Blood Pressure 111/56 [Left] O2 Sat by Pulse 97 96 Oximetry - Exam Breasts: normal Cardiovascular: Regular rate, Normal S1 Lungs: Clear to auscultation, Normal air movement Abdomen: Present: normal appearance, soft, normal bowel sounds. Absent: distention, tenderness, guarding Vulva: both: normal Uterus: Present: normal, firm. Absent: bogginess, tenderness FHR: category 1 Extremities: normal Deep Tendon Reflex Grade: Normal +2 - Labs Labs: Abnormal Labs 06/21/17 18:20 Seg Neutrophils % 71.0 H
[2017-07-04] MEDS: COLACE PO SCH ×2 (09:51→23:45)
[2017-07-04] MEDS: PRENATAL VITAMIN PO SCH (09:51)
--- NOTE | 2017-07-04 16:13 | Progress Note ---
Assessment and Plan 1. IUP at 23 5/7 weeks' 2. Monochorionic/diamniotic twins 3. Cervical shortening 4. pyelectasis [A&B] 1. Continue expectant management 2. Evaluate AFV concordance weekly 3. Evaluate EFW q 2 weeks Subjective - Subjective Principal diagnosis: [place]-di twins at 23w5d; Shortened Cervix Interval history: No complaints. Good movement x2 Denies contractions or pelvic pressure. Patient reports: movement normal, no new complaints, no loss of fluid, no vaginal bleeding, no contractions Objective - Vital Signs Vital Signs: Vital Signs - 12hr 07/04/17 07/04/17 07/04/17 07:50 07:53 07:58 Temperature 97.3 F L Pulse Rate 98 H 100 H 95 H Respiratory 20 Rate Blood Pressure 100/62 Blood Pressure 100/62 [Left] O2 Sat by Pulse 97 96 97 Oximetry 07/04/17 07/04/17 07/04/17 08:03 08:08 08:13 Temperature Pulse Rate 105 H 90 102 H Respiratory Rate Blood Pressure Blood Pressure [Left] O2 Sat by Pulse 96 97 97 Oximetry 07/04/17 07/04/17 12:41 12:47 Temperature 97.8 F Pulse Rate 102 H 99 H Respiratory 20 Rate Blood Pressure 106/61 Blood Pressure 106/61 [Left] O2 Sat by Pulse 97 97 Oximetry - Exam Abdomen: Present: normal appearance, soft - Labs Labs: Abnormal Labs 06/21/17 18:20 Seg Neutrophils % 71.0 H
[2017-07-04] MEDS: AMBIEN PO PRN (23:34)
[2017-07-04] MEDS: MYLICON PO PRN (23:35)
[2017-07-04] MEDS: ALUM-MAG HYDROX-SIMETH 200-200-20MG/5ML PO PRN (23:35)
--- NOTE | 2017-07-05 07:42 | Progress Note ---
Assessment and Plan 1. [place] Di TIUP at 23 6/7 weeks' 2. Cervical shortening 3. pyelectasis [A&B] 4. s/p BMZ Rec: 1. Continue to monitor for labor 2. US weekly to assess DARRION, growth scan q 2 weeks Subjective - Subjective Date of service: 07/05/17 Principal diagnosis: [place]-di twins at 23w6d; Shortened Cervix Interval history: No new complaints Denied contractions bleeding or LOF Patient reports: movement normal, no new complaints, no loss of fluid, no vaginal bleeding, no contractions Objective - Vital Signs Vital Signs: Vital Signs - 12hr 07/04/17 07/04/17 07/04/17 21:52 21:53 22:17 Temperature 97.9 F Pulse Rate 97 H 97 H 113 H Respiratory 18 Rate Blood Pressure 116/66 Blood Pressure 116/66 [Left] O2 Sat by Pulse 97 Oximetry 07/04/17 07/04/17 07/04/17 22:22 22:27 22:32 Temperature Pulse Rate 104 H 98 H 102 H Respiratory Rate Blood Pressure Blood Pressure [Left] O2 Sat by Pulse 97 95 97 Oximetry 07/04/17 07/04/17 07/04/17 22:37 22:42 22:47 Temperature Pulse Rate 102 H 103 H 98 H Respiratory Rate Blood Pressure Blood Pressure [Left] O2 Sat by Pulse 96 96 97 Oximetry - Exam Narrative Exam: NAD laying in bed Abdomen: Present: normal appearance, soft Extremities: normal - Labs Labs: Abnormal Labs 06/21/17 18:20 Seg Neutrophils % 71.0 H - Results US- obstetric: other (US 07/02: Twin A , MVP 5.5cm, , cephalic, bpm 152bpm Twin B MVP 3.7cm, ceph,138bpm)
--- NOTE | 2017-07-05 08:02 | Progress Note ---
Assessment and Plan 1. IUP at 23 5/7 weeks-stable 2. Monochorionic/diamniotic twins 3. Cervical shortening 4. pyelectasis 1. Continue expectant management 2. Per MFM evaluate DARRION weekly and efw every 2 weeks 3. continue present mgt Subjective - Subjective Date of service: 07/05/17 Principal diagnosis: [place]-di twins at 23w6d; Shortened Cervix Patient reports: movement normal, no new complaints, no loss of fluid, no vaginal bleeding, no contractions Objective - Vital Signs Vital Signs: Vital Signs - 12hr 07/04/17 07/04/17 07/04/17 21:52 21:53 22:17 Temperature 97.9 F Pulse Rate 97 H 97 H 113 H Respiratory 18 Rate Blood Pressure 116/66 Blood Pressure 116/66 [Left] O2 Sat by Pulse 97 Oximetry 07/04/17 07/04/17 07/04/17 22:22 22:27 22:32 Temperature Pulse Rate 104 H 98 H 102 H Respiratory Rate Blood Pressure Blood Pressure [Left] O2 Sat by Pulse 97 95 97 Oximetry 07/04/17 07/04/17 07/04/17 22:37 22:42 22:47 Temperature Pulse Rate 102 H 103 H 98 H Respiratory Rate Blood Pressure Blood Pressure [Left] O2 Sat by Pulse 96 96 97 Oximetry - Exam Breasts: deferred Cardiovascular: Regular rate, Normal S1 Lungs: Clear to auscultation, Normal air movement Abdomen: Present: normal appearance, soft, normal bowel sounds. Absent: distention, tenderness, guarding Vulva: both: normal Uterus: Present: normal, firm, fundal height below umbilicus. Absent: bogginess , tenderness FHR: auscultation normal - Labs Labs: Abnormal Labs 06/21/17 18:20 Seg Neutrophils % 71.0 H
[2017-07-05] MEDS: MYLICON PO PRN (21:01)
[2017-07-05] MEDS: ALUM-MAG HYDROX-SIMETH 200-200-20MG/5ML PO PRN (21:02)
[2017-07-05] MEDS: COLACE PO SCH (21:02)
[2017-07-05] MEDS: AMBIEN PO PRN (23:03)
--- NOTE | 2017-07-06 06:53 | Progress Note ---
Assessment and Plan 1. IUP at 23 6/7 weeks-stable 2. Monochorionic/diamniotic twins 3. Cervical shortening 0.5cm 4. pyelectasis 5. s/p bmz x2 1. Continue expectant management 2. Per MFM evaluate DARRION weekly and efw every 2 weeks ( Sunday) 3. continue present mgt Subjective - Subjective Date of service: 07/06/17 Principal diagnosis: [place]-di twins at 23w6d; Shortened Cervix Patient reports: movement normal, no new complaints, no loss of fluid, no vaginal bleeding, no contractions Objective - Vital Signs Vital Signs: Vital Signs - 12hr 07/05/17 07/05/17 07/05/17 19:41 19:53 23:12 Temperature 98.0 F Pulse Rate 101 H 102 H Respiratory 18 Rate Blood Pressure 112/79 O2 Sat by Pulse 97 Oximetry 07/05/17 07/05/17 07/05/17 23:17 23:22 23:27 Temperature Pulse Rate 95 H 99 H 101 H Respiratory Rate Blood Pressure O2 Sat by Pulse 97 98 97 Oximetry 07/05/17 07/05/17 07/05/17 23:32 23:38 23:40 Temperature 97.6 F Pulse Rate 112 H 103 H Respiratory 18 Rate Blood Pressure 111/70 O2 Sat by Pulse 97 Oximetry 07/06/17 07/06/17 03:55 03:58 Temperature 97.5 F L Pulse Rate 99 H Respiratory 20 Rate Blood Pressure 109/59 O2 Sat by Pulse Oximetry - Exam Breasts: deferred Cardiovascular: Regular rate, Normal S1 Lungs: Clear to auscultation, Normal air movement Abdomen: Present: normal appearance, soft, normal bowel sounds. Absent: distention, tenderness Vulva: both: normal Uterus: Present: normal FHR: auscultation normal - Labs Labs: Abnormal Labs 06/21/17 18:20 Seg Neutrophils % 71.0 H
[2017-07-06] MEDS: COLACE PO SCH ×3 (10:00→22:11)
[2017-07-06] MEDS: PRENATAL VITAMIN PO SCH (10:00)
--- NOTE | 2017-07-07 09:34 | Progress Note ---
Assessment and Plan 1. IUP at 24 1/7 weeks' 2. Monochorionic/diamniotic twins 3. Cervical shortening 4. pyelectasis [A&B] 1. Continue expectant management 2. Evaluate AFV concordance weekly 3. Evaluate EFW q 2 weeks Subjective - Subjective Date of service: 07/07/17 Principal diagnosis: [place]-di twins at 23w6d; Shortened Cervix Interval history: Feeling well, fetuses active; denies contractions Patient reports: movement normal, no new complaints, no loss of fluid, no vaginal bleeding, no contractions Objective - Vital Signs Vital Signs: Vital Signs - 12hr 07/07/17 07/07/17 07/07/17 00:09 00:14 00:19 Temperature Pulse Rate 110 H 112 H 119 H Respiratory Rate Blood Pressure Blood Pressure [Left] O2 Sat by Pulse 97 96 96 Oximetry 07/07/17 07/07/17 07/07/17 00:24 00:29 00:34 Temperature Pulse Rate 103 H 108 H 107 H Respiratory Rate Blood Pressure Blood Pressure [Left] O2 Sat by Pulse 96 97 96 Oximetry 07/07/17 07/07/17 07/07/17 00:39 07:46 07:52 Temperature 98.5 F Pulse Rate 106 H 99 H 98 H Respiratory 18 Rate Blood Pressure 99/55 Blood Pressure 99/55 [Left] O2 Sat by Pulse 97 95 94 Oximetry - Exam Narrative Exam: Abd soft, nontender; FHT's reassuring x 2; no contractions on monitor - Labs Labs: Abnormal Labs 06/21/17 18:20 Seg Neutrophils % 71.0 H
[2017-07-07] MEDS: PRENATAL VITAMIN PO SCH (10:43)
[2017-07-07] MEDS: COLACE PO SCH ×2 (10:43→22:05)
--- NOTE | 2017-07-07 19:01 | Progress Note ---
Assessment and Plan - Patient Problems (1) Incompetent cervix during second trimester, antepartum Current Visit: Yes Status: Acute Plan to address problem: continue current management (2) Monochorionic diamniotic twin gestation in second trimester Current Visit: Yes Status: Acute Subjective - Subjective Date of service: 07/07/17 Principal diagnosis: [place]-di twins at 23w6d; Shortened Cervix Interval history: Patient is without complaints. She denies any uterine contractions Patient reports: movement normal, no new complaints, no loss of fluid, no vaginal bleeding, no contractions Objective - Vital Signs Vital Signs: Vital Signs - 12hr 07/07/17 07/07/17 07/07/17 07:46 07:52 12:29 Temperature 98.5 F 98.1 F Pulse Rate 99 H 98 H 96 H Respiratory 18 18 Rate Blood Pressure 99/55 Blood Pressure 99/55 106/66 [Left] O2 Sat by Pulse 95 94 96 Oximetry 07/07/17 07/07/17 07/07/17 12:31 12:36 16:05 Temperature 98.5 F Pulse Rate 92 H 101 H 99 H Respiratory 18 Rate Blood Pressure 106/66 Blood Pressure 107/66 [Left] O2 Sat by Pulse 97 98 97 Oximetry 07/07/17 07/07/17 16:09 16:10 Temperature Pulse Rate 105 H 101 H Respiratory Rate Blood Pressure 107/66 Blood Pressure [Left] O2 Sat by Pulse 98 Oximetry - Labs Labs: Abnormal Labs 06/21/17 18:20 Seg Neutrophils % 71.0 H
[2017-07-07] MEDS: ALUM-MAG HYDROX-SIMETH 200-200-20MG/5ML PO PRN (22:49)
[2017-07-08] MEDS: AMBIEN PO PRN ×2 (02:34→22:13)
[2017-07-08] MEDS: PRENATAL VITAMIN PO SCH (10:42)
[2017-07-08] MEDS: COLACE PO SCH ×2 (10:42→22:13)
--- NOTE | 2017-07-08 15:43 | Progress Note ---
Assessment and Plan - Patient Problems (1) Incompetent cervix during second trimester, antepartum Current Visit: Yes Status: Acute Plan to address problem: continue current management (2) Monochorionic diamniotic twin gestation in second trimester Current Visit: Yes Status: Acute Subjective - Subjective Date of service: 07/08/17 Principal diagnosis: [place]-di twins at 23w6d; Shortened Cervix Interval history: Patient is without complaints. She denies any uterine contractions Patient reports: movement normal, no new complaints, no loss of fluid, no vaginal bleeding, no contractions Objective - Vital Signs Vital Signs: Vital Signs - 12hr 07/08/17 07/08/17 07/08/17 06:23 06:26 08:23 Temperature 98.5 F 98.1 F Pulse Rate 99 H 101 H Respiratory 16 18 Rate Blood Pressure 109/72 Blood Pressure 107/71 [Left] O2 Sat by Pulse 97 Oximetry 07/08/17 07/08/17 07/08/17 08:27 12:42 12:47 Temperature 98.6 F Pulse Rate 102 H 95 H 98 H Respiratory 18 Rate Blood Pressure 107/71 100/59 Blood Pressure 100/59 [Left] O2 Sat by Pulse 97 96 96 Oximetry - Labs Labs: Abnormal Labs 06/21/17 18:20 Seg Neutrophils % 71.0 H
--- NOTE | 2017-07-09 08:58 | Progress Note ---
Assessment and Plan 1. IUP at 24+ weeks-stable 2. Monochorionic/diamniotic twins 3. Cervical shortening 0.5cm 4. pyelectasis 5. s/p bmz x2 6. had some cat 2 tracing north? variables ? will dontinue continous monitoring 1. Continue expectant management 2. Per MFM evaluate DARRION weekly and efw every 2 weeks ( Sunday) 3. continue present mgt Subjective - Subjective Date of service: 07/09/17 Principal diagnosis: [place]-di twins at 23w6d; Shortened Cervix Patient reports: movement normal, no new complaints, no loss of fluid, no vaginal bleeding, no contractions Objective - Vital Signs Vital Signs: Vital Signs - 12hr 07/09/17 07/09/17 07/09/17 00:35 00:40 00:45 Temperature Pulse Rate 108 H 108 H 111 H Respiratory Rate Blood Pressure Blood Pressure [Left] O2 Sat by Pulse 97 96 97 Oximetry 07/09/17 07/09/17 07/09/17 00:50 00:55 01:00 Temperature Pulse Rate 113 H 111 H 123 H Respiratory Rate Blood Pressure Blood Pressure [Left] O2 Sat by Pulse 96 96 96 Oximetry 07/09/17 07/09/17 07/09/17 01:05 01:10 01:12 Temperature Pulse Rate 110 H 111 H 116 H Respiratory Rate Blood Pressure Blood Pressure [Left] O2 Sat by Pulse 96 96 94 Oximetry 07/09/17 07/09/17 07/09/17 01:15 01:20 01:25 Temperature Pulse Rate 112 H 119 H 111 H Respiratory Rate Blood Pressure Blood Pressure [Left] O2 Sat by Pulse 95 96 96 Oximetry 07/09/17 07/09/17 07/09/17 01:29 01:30 01:35 Temperature Pulse Rate 116 H 115 H 114 H Respiratory Rate Blood Pressure Blood Pressure [Left] O2 Sat by Pulse 94 95 96 Oximetry 07/09/17 07/09/17 07/09/17 01:40 01:41 01:45 Temperature Pulse Rate 114 H 115 H 104 H Respiratory Rate Blood Pressure Blood Pressure [Left] O2 Sat by Pulse 96 94 96 Oximetry 07/09/17 07/09/17 07/09/17 01:46 01:50 01:53 Temperature Pulse Rate 99 H 108 H 107 H Respiratory Rate Blood Pressure Blood Pressure [Left] O2 Sat by Pulse 94 96 94 Oximetry 18 18 07/09/17 01:55 02:00 02:01 Temperature Pulse Rate 104 H 104 H 102 H Respiratory Rate Blood Pressure Blood Pressure [Left] O2 Sat by Pulse 95 97 92 Oximetry 18 18 07/09/17 02:05 02:07 02:10 Temperature Pulse Rate 102 H 112 H 103 H Respiratory Rate Blood Pressure Blood Pressure [Left] O2 Sat by Pulse 95 93 97 Oximetry 07/09/17 07/09/17 07/09/17 02:15 02:20 02:25 Temperature Pulse Rate 112 H 110 H 105 H Respiratory Rate Blood Pressure Blood Pressure [Left] O2 Sat by Pulse 96 94 96 Oximetry 07/09/17 07/09/17 07/09/17 02:30 02:35 02:40 Temperature Pulse Rate 103 H 105 H 102 H Respiratory Rate Blood Pressure Blood Pressure [Left] O2 Sat by Pulse 96 96 95 Oximetry 07/09/17 07/09/17 07/09/17 02:45 02:50 02:55 Temperature Pulse Rate 103 H 105 H 100 H Respiratory Rate Blood Pressure Blood Pressure [Left] O2 Sat by Pulse 96 94 97 Oximetry 07/09/1718 07/09/17 03:00 03:05 03:10 Temperature Pulse Rate 100 H 98 H 97 H Respiratory Rate Blood Pressure Blood Pressure [Left] O2 Sat by Pulse 97 97 97 Oximetry 07/09/17 07/09/17 07/09/17 03:15 03:20 03:25 Temperature Pulse Rate 97 H 96 H 93 H Respiratory Rate Blood Pressure Blood Pressure [Left] O2 Sat by Pulse 97 97 97 Oximetry 07/09/17 07/09/17 07/09/17 03:30 03:35 03:40 Temperature Pulse Rate 98 H 103 H 101 H Respiratory Rate Blood Pressure Blood Pressure [Left] O2 Sat by Pulse 97 98 98 Oximetry 07/09/17 07/09/17 07/09/17 03:45 03:50 03:55 Temperature Pulse Rate 100 H 104 H 99 H Respiratory Rate Blood Pressure Blood Pressure [Left] O2 Sat by Pulse 97 97 97 Oximetry 07/09/17 07/09/17 07/09/17 04:00 04:05 04:09 Temperature Pulse Rate 100 H 103 H 98 H Respiratory Rate Blood Pressure Blood Pressure [Left] O2 Sat by Pulse 97 97 85 Oximetry 07/09/17 07/09/17 07/09/17 04:10 04:15 04:18 Temperature Pulse Rate 105 H 88 107 H Respiratory Rate Blood Pressure 134/60 Blood Pressure [Left] O2 Sat by Pulse 97 97 Oximetry 07/09/17 07/09/17 07/09/17 04:20 04:25 04:30 Temperature Pulse Rate 101 H 98 H 102 H Respiratory Rate Blood Pressure Blood Pressure [Left] O2 Sat by Pulse 97 98 97 Oximetry 07/09/17 07/09/17 08:08 08:11 Temperature 98.0 F Pulse Rate 95 H 99 H Respiratory 18 Rate Blood Pressure 98/61 Blood Pressure 98/61 [Left] O2 Sat by Pulse 96 94 Oximetry - Exam Breasts: deferred, normal Cardiovascular: Regular rate, Normal S1 Lungs: Clear to auscultation, Normal air movement Abdomen: Present: normal appearance, soft, normal bowel sounds. Absent: distention, tenderness, guarding Vulva: both: normal Uterus: Present: normal FHR: category 1 Deep Tendon Reflex Grade: Normal +2 - Labs Labs: Abnormal Labs 06/21/17 18:20 Seg Neutrophils % 71.0 H
[2017-07-09] MEDS: PRENATAL VITAMIN PO SCH (11:17)
[2017-07-09] MEDS: COLACE PO SCH ×2 (11:17→22:08)
--- NOTE | 2017-07-09 13:15 | Progress Note ---
Assessment and Plan 1. IUP at 24 3/7 weeks' 2. Monochorionic/diamniotic twins 3. Cervical shortening 4. pyelectasis [A&B] 1. Continue expectant management 2. Evaluate AFV concordance weekly 3. Evaluate EFW q 2 weeks 4. Based on current monitoring, continuous FHR monitoring not necessary Subjective - Subjective Date of service: 07/09/17 (Feeling well, fetuses active; denied contractions) Principal diagnosis: [place]-di twins at 23w6d; Shortened Cervix Interval history: Feeling well, fetuses active; denies contractions Patient reports: movement normal, no new complaints, no loss of fluid, no vaginal bleeding, no contractions Objective - Vital Signs Vital Signs: Vital Signs - 12hr 07/09/17 07/09/17 07/09/17 01:20 01:25 01:29 Temperature Pulse Rate 119 H 111 H 116 H Respiratory Rate Blood Pressure Blood Pressure [Left] O2 Sat by Pulse 96 96 94 Oximetry 07/09/17 07/09/17 07/09/17 01:30 01:35 01:40 Temperature Pulse Rate 115 H 114 H 114 H Respiratory Rate Blood Pressure Blood Pressure [Left] O2 Sat by Pulse 95 96 96 Oximetry 07/09/17 07/09/17 07/09/17 01:41 01:45 01:46 Temperature Pulse Rate 115 H 104 H 99 H Respiratory Rate Blood Pressure Blood Pressure [Left] O2 Sat by Pulse 94 96 94 Oximetry 07/09/17 07/09/17 07/09/17 01:50 01:53 01:55 Temperature Pulse Rate 108 H 107 H 104 H Respiratory Rate Blood Pressure Blood Pressure [Left] O2 Sat by Pulse 96 94 95 Oximetry 07/09/17 07/09/17 07/09/17 02:00 02:01 02:05 Temperature Pulse Rate 104 H 102 H 102 H Respiratory Rate Blood Pressure Blood Pressure [Left] O2 Sat by Pulse 97 92 95 Oximetry 07/09/17 07/09/17 07/09/17 02:07 02:10 02:15 Temperature Pulse Rate 112 H 103 H 112 H Respiratory Rate Blood Pressure Blood Pressure [Left] O2 Sat by Pulse 93 97 96 Oximetry 07/09/17 07/09/17 07/09/17 02:20 02:25 02:30 Temperature Pulse Rate 110 H 105 H 103 H Respiratory Rate Blood Pressure Blood Pressure [Left] O2 Sat by Pulse 94 96 96 Oximetry 18 07/09/17 07/09/17 02:35 02:40 02:45 Temperature Pulse Rate 105 H 102 H 103 H Respiratory Rate Blood Pressure Blood Pressure [Left] O2 Sat by Pulse 96 95 96 Oximetry 07/09/1718 07/09/17 02:50 02:55 03:00 Temperature Pulse Rate 105 H 100 H 100 H Respiratory Rate Blood Pressure Blood Pressure [Left] O2 Sat by Pulse 94 97 97 Oximetry 07/09/17 07/09/17 07/09/17 03:05 03:10 03:15 Temperature Pulse Rate 98 H 97 H 97 H Respiratory Rate Blood Pressure Blood Pressure [Left] O2 Sat by Pulse 97 97 97 Oximetry 07/09/17 07/09/17 07/09/17 03:20 03:25 03:30 Temperature Pulse Rate 96 H 93 H 98 H Respiratory Rate Blood Pressure Blood Pressure [Left] O2 Sat by Pulse 97 97 97 Oximetry 07/09/17 07/09/17 07/09/17 03:35 03:40 03:45 Temperature Pulse Rate 103 H 101 H 100 H Respiratory Rate Blood Pressure Blood Pressure [Left] O2 Sat by Pulse 98 98 97 Oximetry 07/09/17 07/09/17 07/09/17 03:50 03:55 04:00 Temperature Pulse Rate 104 H 99 H 100 H Respiratory Rate Blood Pressure Blood Pressure [Left] O2 Sat by Pulse 97 97 97 Oximetry 07/09/17 07/09/17 07/09/17 04:05 04:09 04:10 Temperature Pulse Rate 103 H 98 H 105 H Respiratory Rate Blood Pressure Blood Pressure [Left] O2 Sat by Pulse 97 85 97 Oximetry 07/09/17 07/09/17 07/09/17 04:15 04:18 04:20 Temperature Pulse Rate 88 107 H 101 H Respiratory Rate Blood Pressure 134/60 Blood Pressure [Left] O2 Sat by Pulse 97 97 Oximetry 07/09/17 07/09/17 07/09/17 04:25 04:30 08:08 Temperature 98.0 F Pulse Rate 98 H 102 H 95 H Respiratory 18 Rate Blood Pressure Blood Pressure 98/61 [Left] O2 Sat by Pulse 98 97 96 Oximetry 07/09/17 07/09/17 07/09/17 08:11 11:30 11:34 Temperature 97.9 F Pulse Rate 99 H 100 H 97 H Respiratory 18 Rate Blood Pressure 98/61 97/57 Blood Pressure 97/57 [Left] O2 Sat by Pulse 94 97 97 Oximetry - Exam Narrative Exam: Abd soft, nontender; FHT's reassuring x 2; no contractions on monitor - Labs Labs: Abnormal Labs 06/21/17 18:20 Seg Neutrophils % 71.0 H
[2017-07-09] MEDS: AMBIEN PO PRN (22:08)
[2017-07-09] MEDS: ALUM-MAG HYDROX-SIMETH 200-200-20MG/5ML PO PRN (23:55)
[2017-07-10] MEDS: COLACE PO SCH ×2 (12:28→21:10)
[2017-07-10] MEDS: PRENATAL VITAMIN PO SCH (12:28)
--- NOTE | 2017-07-10 14:46 | Progress Note ---
Assessment and Plan - Patient Problems (1) Incompetent cervix during second trimester, antepartum Current Visit: Yes Status: Acute Plan to address problem: continue current management awaiting ultrasound results (2) Monochorionic diamniotic twin gestation in second trimester Current Visit: Yes Status: Acute Subjective - Subjective Date of service: 07/10/17 Principal diagnosis: [place]-di twins; Shortened Cervix Interval history: 37y/o @ 24+4 weeks with twin gestation. Patient is without complaints today. She is scheduled for OB ultrasound. Patient reports: movement normal, no new complaints, no loss of fluid, no vaginal bleeding, no contractions Objective - Vital Signs Vital Signs: Vital Signs - 12hr 07/10/17 07/10/17 07/10/17 02:48 02:49 02:54 Temperature Pulse Rate 96 H 116 H 98 H Respiratory Rate Blood Pressure Blood Pressure [Left] O2 Sat by Pulse 94 96 96 Oximetry 07/10/17 07/10/17 07/10/17 02:59 03:04 03:05 Temperature Pulse Rate 98 H 101 H 109 H Respiratory Rate Blood Pressure Blood Pressure [Left] O2 Sat by Pulse 97 97 91 Oximetry 07/10/17 07/10/17 07/10/17 03:09 03:14 03:19 Temperature Pulse Rate 95 H 101 H 101 H Respiratory Rate Blood Pressure Blood Pressure [Left] O2 Sat by Pulse 97 97 96 Oximetry 07/10/17 07/10/17 07/10/17 03:24 03:29 03:34 Temperature Pulse Rate 102 H 103 H 100 H Respiratory Rate Blood Pressure Blood Pressure [Left] O2 Sat by Pulse 97 97 97 Oximetry 07/10/17 07/10/17 07/10/17 03:39 03:44 03:45 Temperature Pulse Rate 99 H 105 H 109 H Respiratory Rate Blood Pressure Blood Pressure [Left] O2 Sat by Pulse 97 96 94 Oximetry 07/10/17 07/10/17 07/10/17 03:49 03:51 03:54 Temperature Pulse Rate 105 H 100 H 109 H Respiratory Rate Blood Pressure Blood Pressure [Left] O2 Sat by Pulse 96 94 97 Oximetry 07/10/17 07/10/17 07/10/17 03:59 04:04 04:09 Temperature Pulse Rate 98 H 99 H 104 H Respiratory Rate Blood Pressure Blood Pressure [Left] O2 Sat by Pulse 98 97 97 Oximetry 07/10/17 03/20/18 /20/18 04:14 04:16 04:19 Temperature Pulse Rate 108 H 107 H 103 H Respiratory Rate Blood Pressure Blood Pressure [Left] O2 Sat by Pulse 97 94 96 Oximetry 20/18 /20/18 /20/18 04:24 04:29 04:34 Temperature Pulse Rate 104 H 101 H 99 H Respiratory Rate Blood Pressure Blood Pressure [Left] O2 Sat by Pulse 97 96 97 Oximetry 20/18 /20/18 /2018 04:39 04:44 04:47 Temperature Pulse Rate 97 H 101 H 106 H Respiratory Rate Blood Pressure Blood Pressure [Left] O2 Sat by Pulse 95 97 94 Oximetry 20/18 /20/18 /2018 04:49 04:54 04:59 Temperature Pulse Rate 108 H 93 H 98 H Respiratory Rate Blood Pressure Blood Pressure [Left] O2 Sat by Pulse 97 98 97 Oximetry 20/18 /20/18 /20/ 05:00 05:04 05:09 Temperature Pulse Rate 91 H 104 H 106 H Respiratory Rate Blood Pressure Blood Pressure [Left] O2 Sat by Pulse 93 97 97 Oximetry 20/18 03/20/18 03/20/18 05:10 05:14 05:16 Temperature Pulse Rate 99 H 107 H 101 H Respiratory Rate Blood Pressure Blood Pressure [Left] O2 Sat by Pulse 92 97 94 Oximetry 20/18 /20/18 /20/18 05:19 05:21 05:24 Temperature Pulse Rate 105 H 106 H 98 H Respiratory Rate Blood Pressure Blood Pressure [Left] O2 Sat by Pulse 97 93 97 Oximetry 20/18 /20/18 2018 05:29 05:34 05:39 Temperature Pulse Rate 97 H 102 H 106 H Respiratory Rate Blood Pressure Blood Pressure [Left] O2 Sat by Pulse 97 97 97 Oximetry 20/18 /20/18 /20/18 05:59 06:04 08:20 Temperature 98.2 F Pulse Rate 103 H 115 H 105 H Respiratory 16 Rate Blood Pressure Blood Pressure 103/57 [Left] O2 Sat by Pulse 96 96 Oximetry 20/18 /20/18 /20/18 08:32 09:50 12:20 Temperature 97.8 F Pulse Rate 105 H 68 98 H Respiratory 16 Rate Blood Pressure 103/57 Blood Pressure 103/71 [Left] O2 Sat by Pulse 98 Oximetry 07/10/17 12:35 Temperature Pulse Rate 98 H Respiratory Rate Blood Pressure 103/71 Blood Pressure [Left] O2 Sat by Pulse Oximetry - Labs Labs: Abnormal Labs 06/21/17 18:20 Seg Neutrophils % 71.0 H
[2017-07-10] MEDS: AMBIEN PO PRN (21:10)
--- NOTE | 2017-07-11 08:04 | Ultrasound Report ---
ULTRASOUND OB LIMITED History: Twin gestation, evaluate amniotic fluid Technique: Transabdominal ultrasound with Doppler interrogation. Gestation: Baby A Position: Cephalic Amniotic Fluid: Within normal limits. Largest vertical pocket measures 3.8 cm Heart rate: 155 bpm. Gestation: Baby B Position: Breech Amniotic Fluid: Within normal limits. Largest vertical pocket measures 2.5 cm. Heart Rate: 133 BPM
--- NOTE | 2017-07-11 08:30 | Progress Note ---
Assessment and Plan 1. IUP at 24 5/7 weeks' 2. Monochorionic/diamniotic twins 3. Cervical shortening 4. pyelectasis [A&B] 1. Continue expectant management 2. Evaluate AFV concordance weekly 3. Evaluate EFW q 2 weeks (last done as an outpatient on 06/21/17) Subjective - Subjective Principal diagnosis: [place]-di twins; Shortened Cervix Interval history: No complaints. Good movement x2 Denies contractions or pelvic pressure. Patient reports: movement normal, no new complaints, no loss of fluid, no vaginal bleeding, no contractions Objective - Vital Signs Vital Signs: Vital Signs - 12hr 07/11/17 07/11/17 07/11/17 00:26 00:31 00:36 Pulse Rate 111 H 114 H 110 H Blood Pressure O2 Sat by Pulse 95 96 97 Oximetry 07/11/17 07/11/17 07/11/17 00:41 00:46 00:51 Pulse Rate 112 H 109 H 107 H Blood Pressure O2 Sat by Pulse 96 97 96 Oximetry 07/11/17 07:45 Pulse Rate 93 H Blood Pressure 110/54 O2 Sat by Pulse Oximetry - Exam Abdomen: Present: soft - Labs Labs: Abnormal Labs 06/21/17 18:20 Seg Neutrophils % 71.0 H
--- NOTE | 2017-07-11 11:31 | Progress Note ---
Assessment and Plan A: [place]-Di Twin IUP at 24w5d Incompetent Cervix- cervical length 5 mm on 06/21/17 Morbid Obesity GERD P: Continue inpatient management with complete bed rest. Betamethasone course completed 06/30/17 EFW q 2 weeks. Last weight 06/21/17. EFW ordered today. DARRION weekly. Intermittent monitoring per [facility] recs. Subjective - Subjective Date of service: 07/11/17 Principal diagnosis: [place]-di twins; Shortened Cervix; Pylectasis Interval history: No overnight events. Patient reports: movement normal, no new complaints, no loss of fluid, no vaginal bleeding, no contractions Objective - Vital Signs Vital Signs: Vital Signs - 12hr 07/11/17 07/11/17 07/11/17 00:26 00:31 00:36 Temperature Pulse Rate 111 H 114 H 110 H Respiratory Rate Blood Pressure O2 Sat by Pulse 95 96 97 Oximetry 07/11/17 07/11/17 07/11/17 00:41 00:46 00:51 Temperature Pulse Rate 112 H 109 H 107 H Respiratory Rate Blood Pressure O2 Sat by Pulse 96 97 96 Oximetry 07/11/17 07/11/17 07:45 08:00 Temperature 98.1 F Pulse Rate 93 H Respiratory 16 Rate Blood Pressure 110/54 O2 Sat by Pulse Oximetry - Exam Breasts: deferred Cardiovascular: Regular rate Lungs: Clear to auscultation Abdomen: Present: soft (obese, gravid ) Uterus: Present: normal (gravid ) FHR: auscultation normal Uterine Contraction Monitor Mode: External Uterine Contraction Pattern: Absent Uterine Tone Measurement Phase: Resting Extremities: normal - Labs Labs: Abnormal Labs 06/21/17 18:20 Seg Neutrophils % 71.0 H - Results US- obstetric: report reviewed
[2017-07-11] MEDS: COLACE PO SCH ×2 (11:53→22:13)
[2017-07-11] MEDS: PRENATAL VITAMIN PO SCH (11:54)
[2017-07-11] MEDS: ALUM-MAG HYDROX-SIMETH 200-200-20MG/5ML PO PRN (20:21)
[2017-07-11] MEDS: AMBIEN PO PRN (22:13)
--- NOTE | 2017-07-12 02:37 | Ultrasound Report ---
FINAL REPORT EXAM: US OB FOLLOWUP EA ADD GESTAT HISTORY: FWB TECHNIQUE: Transabdominal obstetrical imaging was obtained for evaluation of baby B of the monochorionic diamniotic . Doppler interrogation of the placenta and fetus was obtained. FINDINGS: Twin B is in breech presentation. The heart is 145 BPM. The placenta is grade 0 and is anterior in position. The largest vertical pocket of amniotic fluid is 6.4 cm which is normal. The estimated sonographic gestational age is 24 weeks 6 days. Estimated weight is 751 grams. IMPRESSION: Twin B is in breech presentation. heart rate is 145 BPM. Estimated sonographic age of twin B is 24 weeks 6 days.
--- NOTE | 2017-07-12 02:39 | Ultrasound Report ---
FINAL REPORT EXAM: US OB FOLLOW UP HISTORY: [place]-Twin IUP at 24wks TECHNIQUE: Transabdominal sonographic imaging was obtained of the uterus for evaluation of twin a in a monochorionic diamniotic . FINDINGS: Twin a is in transverse position with the head on maternal right side. The heart rate is 140 BPM. The placenta is anterior and is grade 0. The largest amniotic fluid pocket is 5.5 cm which is normal. The estimated sonographic age is 25 weeks 2 days based on criteria. Estimated weight is 807 grams. IMPRESSION: Twin a is in transverse position with the head on the maternal right side. Estimated gestational age is 25 weeks 2 days. The heart rate is 140 BPM.
--- NOTE | 2017-07-12 09:04 | Progress Note ---
Assessment and Plan A: [place]-Di Twin IUP at 24w6d Incompetent Cervix- cervical length 5 mm on 06/21/17 Pylectasis of both twins Morbid Obesity GERD Undesired Fertility P: Continue inpatient management with complete bed rest. Betamethasone course completed 06/30/17 EFW q 2 weeks. Last weight 07/11/17 DARRION weekly. Intermittent monitoring per [facility] recs. Sign Medicaid BTL consent. Subjective - Subjective Date of service: 07/12/17 Principal diagnosis: [place]-di twins; Shortened Cervix; Pylectasis Interval history: No overnight events. Growth scan yesterday. Pt reports that she wants a tubal ligation at the time of section but does not want her partner to know. Patient reports: movement normal, no new complaints, no loss of fluid, no vaginal bleeding, no contractions Objective - Exam Breasts: deferred Cardiovascular: Regular rate Lungs: Clear to auscultation Abdomen: Present: soft (obese, gravid ) Uterus: Present: normal (gravid ) FHR: auscultation normal Uterine Contraction Monitor Mode: External Uterine Contraction Pattern: Absent Uterine Tone Measurement Phase: Resting Extremities: normal - Labs Labs: Abnormal Labs 06/21/17 18:20 Seg Neutrophils % 71.0 H
[2017-07-12] MEDS: PRENATAL VITAMIN PO SCH (14:34)
[2017-07-12] MEDS: COLACE PO SCH ×2 (14:34→22:38)
--- NOTE | 2017-07-12 20:25 | Progress Note ---
Assessment and Plan 1. [place] Di TIUP at 24 6/7 weeks - no evidence of TTTS 2. Cervical shortening 3. pyelectasis [A&B] 4. s/p [employer] [facility] Rec: 1. Continue to monitor for labor, ROM , distress 2. Weekly DARRION to screen for TTTS Growth scans q 2-3 weeks Subjective - Subjective Date of service: 07/12/17 Principal diagnosis: [place]-di twins; Shortened Cervix; Pylectasis Interval history: She reports occasional contractions, denied pain or bleeding Patient reports: movement normal, no new complaints, no loss of fluid, no vaginal bleeding, no contractions Objective - Vital Signs Vital Signs: Vital Signs - 12hr 07/12/17 07/12/17 11:37 19:58 Pulse Rate 109 H 101 H Blood Pressure 102/65 109/67 - Exam Abdomen: Present: normal appearance, soft (FHT Cat I x 2 , toco irritability, infrequent contractions ) FHR: category 1 - Labs Labs: Abnormal Labs 06/21/17 18:20 Seg Neutrophils % 71.0 H - Results US- obstetric: report reviewed (07/11 Twin A transverse lie maternal right MVP 5.5cm EFW 807 gm, twin B breech MVP 6.4cm, EFW 751gm , - images reviewed no images were taken of the bladder )
[2017-07-12] MEDS: AMBIEN PO PRN (22:41)
--- NOTE | 2017-07-13 07:28 | Progress Note ---
Assessment and Plan A: [place]-Di Twin IUP at 25w0d s/p 2 doses of betamethasone completed 06/30/17 Incompetent Cervix- cervical length 5 mm on 06/21/17 Pylectasis of both twins Morbid Obesity GERD Undesired Fertility P: Continue inpatient management with complete bed rest. EFW q 2 weeks. Last weight 07/11/17 DARRION weekly Intermittent monitoring per [facility] recs. Sign Medicaid BTL consent Subjective - Subjective Date of service: 07/13/17 Principal diagnosis: [place]-di twins; Shortened Cervix; Pyelectasis Interval history: No overnight events. Patient reports: movement normal, no new complaints, no loss of fluid, no vaginal bleeding, no contractions Objective - Vital Signs Vital Signs: Vital Signs - 12hr 07/12/17 19:58 Temperature 98.4 F Pulse Rate 101 H Respiratory 20 Rate Blood Pressure 109/67 - Exam Breasts: deferred Cardiovascular: Regular rate Lungs: Clear to auscultation Abdomen: Present: soft (gravid, obese ) Uterus: Present: normal (gravid ) FHR: auscultation normal Uterine Contraction Monitor Mode: External Uterine Contraction Pattern: Absent Uterine Tone Measurement Phase: Resting Extremities: normal - Labs Labs: Abnormal Labs 06/21/17 18:20 Seg Neutrophils % 71.0 H
[2017-07-13] MEDS: PRENATAL VITAMIN PO SCH (11:54)
[2017-07-13] MEDS: COLACE PO SCH ×2 (11:55→22:14)
[2017-07-13 17:05] LABS: Hematocrit 32.1 % (30.3-42.9); Hemoglobin 10.6 gm/dl (10.1-14.3); Mean Corpuscular HGB Conc 33 % (30-34); Mean Corpuscular Hemoglobin 30 pg (28-32); Mean Corpuscular Volume 90 fl (79-97); Platelet Count 282 K/mm3 (140-440); Red Blood Count 3.57 M/mm3 (3.65-5.03); Red Cell Distribution Width 14.1 % (13.2-15.2)
[2017-07-13] MEDS ORDERED: PEPCID IV PRN (20:31)
[2017-07-13] MEDS: AMBIEN PO PRN (22:15)
--- NOTE | 2017-07-14 10:59 | Progress Note ---
Assessment and Plan 1. [place] Di TIUP at 25 0/7 weeks - no evidence of TTTS based on 07/11 scan 2. Cervical shortening 3. pyelectasis [A&B] 4. s/p BMZ Rec: 1. Continue to monitor for labor, ROM , distress 2. Weekly DARRION to screen for TTTS Growth scans q 2-3 weeks Subjective - Subjective Date of service: 07/14/17 Principal diagnosis: [place]-di twins; Shortened Cervix; Pyelectasis Interval history: She denied any cramping today No bleeding , pressure or LOF Patient reports: movement normal, no new complaints, no loss of fluid, no vaginal bleeding, no contractions Objective - Vital Signs Vital Signs: Vital Signs - 12hr 07/14/17 07/14/17 08:40 08:54 Temperature 98.5 F Pulse Rate 79 97 H Respiratory 16 Rate Blood Pressure 98/61 Blood Pressure 98/61 [Left] - Exam Narrative Exam: NAD laying in bed FHR: category 1 Uterine Contraction Pattern: Absent Extremities: normal - Labs Labs: Abnormal Labs 06/21/17 07/13/17 18:20 16:35 RBC 3.57 L Seg Neutrophils % 71.0 H Laboratory Results - last 24 hr 07/13/17 07/13/17 16:35 16:35 WBC 9.2 RBC 3.57 L Hgb 10.6 Hct 32.1 MCV 90 MCH 30 MCHC 33 RDW 14.1 Plt Count 282 Blood Type A POSITIVE Antibody Screen Negative
--- NOTE | 2017-07-14 13:17 | Progress Note ---
Assessment and Plan A: [place]-Di Twin IUP at 25w1d s/p 2 doses of betamethasone completed 06/30/17 Incompetent Cervix- cervical length 5 mm on 06/21/17 Pylectasis of both twins Morbid Obesity GERD Undesired Fertility- Medicaid consent signed 07/13/17 P: Continue inpatient management with complete bed rest. EFW q 2 weeks. Last weight 07/11/17 DARRION weekly. Last study 07/11/17 Intermittent monitoring per [facility] recs. Subjective - Subjective Date of service: 07/14/17 Principal diagnosis: [place]-di twins; Shortened Cervix; Pyelectasis Interval history: No overnight events. Patient reports: movement normal, no new complaints, no loss of fluid, no vaginal bleeding, no contractions Objective - Vital Signs Vital Signs: Vital Signs - 12hr 07/14/17 07/14/17 08:40 08:54 Temperature 98.5 F Pulse Rate 79 97 H Respiratory 16 Rate Blood Pressure 98/61 Blood Pressure 98/61 [Left] - Exam Breasts: deferred Cardiovascular: Regular rate Lungs: Clear to auscultation Abdomen: Present: soft (obese, gravid ) Uterus: Present: normal FHR: auscultation normal Uterine Contraction Monitor Mode: External Uterine Contraction Pattern: Absent Uterine Tone Measurement Phase: Resting Extremities: normal - Labs Labs: Abnormal Labs 06/21/17 07/13/17 18:20 16:35 RBC 3.57 L Seg Neutrophils % 71.0 H Laboratory Results - last 24 hr 07/13/17 07/13/17 16:35 16:35 WBC 9.2 RBC 3.57 L Hgb 10.6 Hct 32.1 MCV 90 MCH 30 MCHC 33 RDW 14.1 Plt Count 282 Blood Type A POSITIVE Antibody Screen Negative
[2017-07-14] MEDS ORDERED: DULCOLAX PR PRN (19:37)
[2017-07-14] MEDS: AMBIEN PO PRN (22:06)
[2017-07-14] MEDS: COLACE PO SCH (22:06)
[2017-07-15] MEDS ORDERED: CITRATE OF MAGNESIA PO PRN (11:52)
--- NOTE | 2017-07-15 11:52 | Progress Note ---
Assessment and Plan A: [place]-Di Twin IUP at 25w2d s/p 2 doses of betamethasone completed 06/30/17 Incompetent Cervix- cervical length 5 mm on 06/21/17 Pylectasis of both twins Morbid Obesity GERD Undesired Fertility- Medicaid consent signed 07/13/17 P: Begin PPI Continue inpatient management with complete bed rest. EFW q 2 weeks. Last weight 07/11/17. Next study due 07/25/17 DARRION weekly. Last study 07/11/17. Next study due 07/18/17 Intermittent monitoring per [facility] recs Subjective - Subjective Date of service: 07/15/17 Principal diagnosis: [place]-di twins; Shortened Cervix; Pyelectasis Interval history: No overnight events. Pt reports constipation last night and frequent GERD. Otherwise no complaints. Patient reports: movement normal, no new complaints, no loss of fluid, no vaginal bleeding, no contractions Objective - Vital Signs Vital Signs: Vital Signs - 12hr 07/15/17 07/15/17 07/15/17 00:51 00:52 00:53 Temperature 97.2 F L Pulse Rate 114 H 117 H Respiratory 18 Rate Blood Pressure 108/59 Blood Pressure [Right] O2 Sat by Pulse 96 Oximetry 07/15/17 07/15/17 07/15/17 03:33 03:34 11:00 Temperature 97.1 F L 97.8 F Pulse Rate 101 H 102 H Respiratory 14 Rate Blood Pressure 100/63 Blood Pressure 100/63 [Right] O2 Sat by Pulse 96 Oximetry 07/15/17 11:17 Temperature Pulse Rate 100 H Respiratory Rate Blood Pressure 110/68 Blood Pressure [Right] O2 Sat by Pulse Oximetry - Exam Breasts: deferred Cardiovascular: Regular rate Lungs: Clear to auscultation Abdomen: Present: soft (obese, gravid ) Uterus: Present: normal (gravid ) FHR: auscultation normal Uterine Contraction Monitor Mode: External Uterine Contraction Pattern: Absent Uterine Tone Measurement Phase: Resting Extremities: normal - Labs Labs: Abnormal Labs 06/21/17 07/13/17 18:20 16:35 RBC 3.57 L Seg Neutrophils % 71.0 H
[2017-07-15] MEDS ORDERED: PROTONIX PO SCH (13:00)
--- NOTE | 2017-07-15 13:54 | Event Note ---
Date: 07/15/17 Called by pt's nurse for gross rupture of membranes around 1315 pm. Clear fluid. Pt denies contractions. Begin latency antibiotics. Ultrasound for DARRION and presentation. Continuous monitoring. Closely monitor clinical status.
[2017-07-15] MEDS ORDERED: TRIMOX ONE (15:01)
[2017-07-15] MEDS: POLYCILLIN/NS 2 GM/100 ML 2 GM/100 ML BAG IV SCH ×2 (15:06→20:55)
[2017-07-15] MEDS: PRENATAL VITAMIN PO SCH (15:07)
[2017-07-15] MEDS: ERY-TAB PO SCH ×2 (15:07→20:55)
[2017-07-15] MEDS: COLACE PO SCH ×2 (15:07→23:10)
[2017-07-15] MEDS ORDERED: NORMOSOL-R PH 7.4 1,000 ML IV ONE (15:23)
--- NOTE | 2017-07-15 16:05 | Ultrasound Report ---
FINAL REPORT PROCEDURE: US OB LIMITED, twin B TECHNIQUE: Real-time limited sonographic examination was performed for evaluation of twin B with image documentation (1 or more fetuses). CPT 48026 HISTORY: well being. Twin . Premature rupture of membranes COMPARISON: 07/11/2017 FINDINGS: MATERNAL Transabdominal measurement of the maternal cervix is 3.0 centimeters in length. FETUS IUP: Single living intrauterine . Position: Transverse, with the head on the maternal right. Amniotic fluid volume: Deepest vertical pocket is 2.4 centimeters, which is at the lower limit of normal Heart rate and rhythm: 153 BPM, Regular . IMPRESSION: Deepest vertical pocket of amniotic fluid measures 2.4 centimeters, which is at the lower limit of normal.
[2017-07-15] MEDS ORDERED: MILK OF MAGNESIA PO PRN (22:00)
[2017-07-15] MEDS: AMBIEN PO PRN (23:10)
[2017-07-16] MEDS ORDERED: NORMOSOL-R PH 7.4 1,000 ML IV SCH ×2 (01:00→09:00)
[2017-07-16] MEDS: ERY-TAB PO SCH (02:59)
[2017-07-16] MEDS ORDERED: POLYCILLIN/NS 2 GM/100 ML 2 GM/100 ML BAG IV SCH (03:00)
[2017-07-16] MEDS ORDERED: REGLAN ONE (07:39)
[2017-07-16] MEDS ORDERED: PEPCID IV ONE ×2 (07:40→08:20)
[2017-07-16] MEDS ORDERED: ANCEF/STERILE WATER 2 GM/20 ML 2 GM/20 ML SYRINGE IV ONE (07:41)
[2017-07-16] MEDS ORDERED: BICITRA ONE (07:42)
[2017-07-16] MEDS ORDERED: CELESTONE SOLUSPAN IM ONE (07:50)
[2017-07-16 07:55] LABS: Mean Corpuscular HGB Conc 34 % (30-34); Mean Corpuscular Hemoglobin 30 pg (28-32); Mean Corpuscular Volume 88 fl (79-97); Platelet Count 236 K/mm3 (140-440); Red Blood Count 3.64 M/mm3 (3.65-5.03); Red Cell Distribution Width 14.1 % (13.2-15.2)
[2017-07-16] MEDS ORDERED: DILAUDID IV PRN (08:07)
[2017-07-16] MEDS ORDERED: PHENERGAN PO PRN (08:07)
[2017-07-16] MEDS ORDERED: NARCAN 0.4 MG/1 ML IV PRN ×2 (08:07→10:08)
[2017-07-16] MEDS ORDERED: PHENERGAN PR PRN (08:07)
--- NOTE | 2017-07-16 08:07 | Anesthesia Day of Surgery ---
Anesthesia Day of Surgery - Day of Surgery Patient Examined: Yes Patient H&P Reviewed: Yes Patient is NPO: Yes
--- NOTE | 2017-07-16 08:07 | Anesthesia Consultation ---
Anesthesia Consult and Med Hx Date of service: 07/16/17 - Airway Anesthetic Teeth Evaluation: Good ROM Head & Neck: Adequate Mental/Hyoid Distance: Adequate Mallampati Class: Class III Intubation Access Assessment: Possibly Difficult - Pulmonary Exam CTA: Yes - Cardiac Exam Cardiac Exam: RRR - Pre-Operative Health Status ASA Pre-Surgery Classification: ASA2 Proposed Anesthetic Plan: Epidural, Spinal - Pulmonary Hx Smoking: No Hx Asthma: No COPD: No Hx Pneumonia: No - Endocrine Hx End Stage Renal Disease: No - Other Systems Hx Alcohol Use: No Hx Substance Use: No Hx Cancer: No
[2017-07-16] MEDS ORDERED: BICITRA PO ONE (08:20)
[2017-07-16] MEDS ORDERED: REGLAN IV ONE (08:20)
--- NOTE | 2017-07-16 08:20 | Event Note ---
Date: 07/16/17 I was contacted by rd the nurse in regards to Ms. Valadez. She was noted to have a part in the cervix protruding out. I called for emergency c/sec for [place] di twins. I am on hold for a stat csec currently with another provider and will proceed kristina.
[2017-07-16] MEDS ORDERED: PITOCin/NS 20 UNIT/1000ML DRIP 20 UNITS/1,000 ML BAG IV SCH ×2 (09:00→11:00)
[2017-07-16] MEDS ORDERED: ANCEF/STERILE WATER 2 GM/20 ML 2 GM/20 ML SYRINGE IV NR (09:00)
[2017-07-16] MEDS ORDERED: SODIUM CHLORIDE FLUSH SYRINGE 10 ML IV NR ×2 (09:00→11:00)
[2017-07-16] MEDS ORDERED: ANCEF/STERILE WATER 2 GM/20 ML IV ONE (09:19)
[2017-07-16] MEDS ORDERED: NACL 0.9% IR ONE (09:24)
[2017-07-16] MEDS ORDERED: WATER FOR IRRIG STERILE IR ONE (09:24)
[2017-07-16] MEDS ORDERED: NEO SYNEPHRINE/NS Syringe(OR USE) IV ONE ×2 (09:36→09:49)
[2017-07-16] MEDS ORDERED: ASTRAMORPH PF 10MG/10ML ONE (09:51)
[2017-07-16] MEDS ORDERED: TUCKS PAD TP PRN (10:08)
[2017-07-16] MEDS ORDERED: MORPHINE IV PRN ×3 (10:08→11:15)
[2017-07-16] MEDS ORDERED: LANSINOH TP PRN (10:08)
[2017-07-16] MEDS ORDERED: TORADOL IV PRN (10:08)
[2017-07-16] MEDS ORDERED: ZOFRAN IV PRN (10:08)
[2017-07-16] MEDS ORDERED: NORCO 5/325 PO PRN (10:08)
--- NOTE | 2017-07-16 10:16 | Procedure Note ---
OB Delivery Note - Delivery Date of Delivery: 07/16/17 Surgeon: WESLEY HENDERSON Estimated blood loss: 1000cc - Section Preop diagnosis: breech, other malpresentation Postop diagnosis: same section procedure: primary low transverse Disposition: PACU Complications: none Narrative: see op note - A at 1 minute: 1 at 5 minutes: 8 Gender: Male B at 1 minute: 8 at 5 minutes: 9 Infant Gender: Male
--- NOTE | 2017-07-16 10:53 | Operative Report ---
Operative Report Operative Report: 07/16/17 PREOPERATIVE DIAGNOSES: 1. INTRAUTERINE AT 25+3 WEEKS GESTATION. 2. MONO DI TWINS 3. LABOR 4. SROM 5. MALPRESENTATION POSTOP DIAGNOSIS 1 QUAN SURGERY: PRIMARY LOWER-SEGMENT TRANSVERSE SECTION. ANESTHESIA: SPINAL ESTIMATED BLOOD LOSS: 1000 CC. FINDINGS: A living male x2. , footling breech A weight 690g Apgars 1 and 9 and transverse B,weight 875g scores 8 and 9. DESCRIPTION OF PROCEDURE: The patient was brought to the operating room and began to prepare for spinal and Dunham had been performed. The abdomen was prepped and draped and tested for analgesia. When found to be adequate, a low- abdominal Pfannenstiel incision was made with the first knife and carried down to the fascia with a second knife. The fascia was cleared of subcutaneous tissue. Bleeding points were clamped with hemostats and Bovie coagulated. The fascia was incised in the midline and extended laterally with curved Brownlee scissors. Brynn clamps were placed on the fascial edge, first anteriorly and then superiorly. The rectus muscles were by sharp dissection.The rectus muscles were divided in the midline by sharp dissection. The parietoperitoneum was grasped with hemostats and carefully entered with a scalpel, and the incision extended with Metzenbaum scissors. The bladder blade was inserted. The visceroperitoneum was grasped with entered with fingers , and extended laterally. The bladder flap was created by gentle blunt dissection and placed behind the bladder blade. The lower uterine segment was noted to be quite thin; it was carefully incised with a scalpel and extended laterally with hand manipulation. A living male infant was delivered from the breech with both legs and usual fashion dlivery of head . The baby was suctioned and cried immediately, and was handed to the pediatric team in attendance. The bag was ruptured at the opening light meconium and delivered from transverse to breech in usual fashion. . The placenta was delivered manually. The uterus was explored with a wet lap sponge and found to be clear of membranes. The first layer of uterine closure was with running-locking #0 vicryl. . The second layer was with imbricating #0 vicryl suture. The second layer of uterine closure was imbricating #1 chromic catgut suture. Hemostasis was carefully checked and found to be satisfactory. Tissel placed and surgicel used. The fallopian tubes and ovaries were inspected and found to be normal bilaterally. After correct lap and instrument counts, the peritoneum was closed with a running 2-0 vicryl suture.The subcutaneous tissue was approximated with interrupted 2-0 vicryl. The subcutaneous tissue was approximated with 2-0 vicryl. The skin was closed with see. Urinary output was adequate and blood- tinged. The patient left to the recovery room in good condition.
[2017-07-16] MEDS: AMBIEN PO PRN (22:43)
[2017-07-16] MEDS ORDERED: D5LR 1,000 ML IV SCH (23:00)
[2017-07-16 23:12] LABS: Hematocrit 32.3 % (30.3-42.9); Hemoglobin 10.6 gm/dl (10.1-14.3)
--- NOTE | 2017-07-17 08:46 | Progress Note ---
Assessment and Plan - Patient Problems (1) Incompetent cervix during second trimester, antepartum Current Visit: Yes Status: Acute Plan to address problem: Patient doing well Routine postoperative care (2) Monochorionic diamniotic twin gestation in second trimester Current Visit: Yes Status: Acute Subjective - Subjective Date of service: 07/17/17 Principal diagnosis: [place]-di twins; Shortened Cervix; Pyelectasis Interval history: The patient reports feeling well. She was tolerating a clear diet without complication. The patient has been to the NICU to see her infants. Patient reports: appetite normal, voiding normally, pain well controlled : in NICU Objective - Vital Signs Latest vital signs: Vital Signs Temp Pulse Resp BP BP Pulse Ox 07/17/17 04:45 97.5 F L 82 18 105/61 96 07/17/17 01:15 97.5 F L 85 18 107/77 97 07/16/17 21:35 97.5 F L 86 18 108/64 96 07/16/17 18:15 92 F L 92 H 18 108/59 07/16/17 16:00 98 F 90 18 98/60 07/16/17 12:15 97.5 F L 82 109/55 07/16/17 12:05 80 22 115/79 99 07/16/17 12:00 97.6 F 86 24 104/60 100 07/16/17 11:56 88 30 H 100/65 100 07/16/17 11:50 83 20 114/77 99 07/16/17 11:45 85 29 H 111/72 100 07/16/17 11:40 88 34 H 120/76 99 07/16/17 11:35 89 27 H 99/55 99 07/16/17 11:30 84 26 H 116/74 100 07/16/17 11:25 88 28 H 118/73 100 07/16/17 11:20 88 29 H 115/78 100 07/16/17 11:15 91 H 29 H 104/71 98 07/16/17 11:10 88 24 106/69 99 07/16/17 11:05 88 26 H 107/68 99 07/16/17 11:00 102 H 23 103/65 98 07/16/17 10:55 94 H 23 104/66 100 07/16/17 10:50 94 H 24 103/64 100 07/16/17 10:45 101 H 19 98/63 100 07/16/17 10:40 97 H 25 H 99/61 100 07/16/17 10:36 99 H 28 H 105/76 07/16/17 10:30 97.6 F 101 H 28 H 100/63 07/16/17 10:29 100/63 07/16/17 08:49 137 H 121/76 Intake and Output 07/16/17 07/17/17 07/17/17 22:59 06:59 14:59 Intake Total 600 120 Output Total 700 1600 Balance -100 -1480 Intake: Oral 600 120 Output: Urine 700 1600 Indwelling Catheter 700 1200 Void 400 Other: Total, Intake Amount 240 120 Total, Output Amount 400 400 - Exam Incision: Present: dressed
[2017-07-17] MEDS: COLACE PO SCH ×3 (10:10→21:06)
[2017-07-17] MEDS ORDERED: M-M-R II VACCINE SUB-Q ONE (10:10)
[2017-07-17] MEDS: FEOSOL PO SCH (10:10)
[2017-07-17] MEDS ORDERED: TRIMOX PO SCH (13:56)
[2017-07-17] MEDS ORDERED: ERY-TAB PO SCH (13:56)
[2017-07-17] MEDS: PERCOCET 5/325 PO PRN (19:32)
[2017-07-17] MEDS: AMBIEN PO PRN (21:05)
[2017-07-18] MEDS: MOTRIN PO PRN ×3 (01:09→18:05)
[2017-07-18] MEDS: PERCOCET 5/325 PO PRN ×4 (05:19→21:21)
--- NOTE | 2017-07-18 08:39 | Progress Note ---
Assessment and Plan A: POD #2 s/p primary section at 25 wks secondary to active labor, PPROM, malpresentation, mon-di twins doing well Asympotomatic anemia P: Routine advances. Anticipate discharge tomorrow. Subjective - Subjective Date of service: 07/18/17 Principal diagnosis: [place]-di twins; Shortened Cervix; Pyelectasis Interval history: No overnight events. Pt feeling well. Patient reports: appetite normal, voiding normally, pain well controlled, flatus , ambulating normally, no bowel movement [place]: in NICU Objective - Vital Signs Latest vital signs: Vital Signs Temp Pulse Resp BP BP Pulse Ox 07/17/17 23:45 98.5 F 98 H 18 122/69 97 07/17/17 16:32 98.4 F 103 H 20 131/82 95 07/17/17 08:52 98.5 F 96 H 24 101/64 96 Intake and Output 07/17/17 07/18/17 07/18/17 22:59 06:59 14:59 Intake Total 240 360 Balance 240 360 Intake: Oral 240 360 Other: Total, Intake Amount 240 240 # Voids Void 1 1 - Exam Breasts: Present: deferred Cardiovascular: Present: Regular rate Lungs: Present: Clear to auscultation Abdomen: Present: soft. Absent: distention Uterus: Present: fundal height below umbilicus Extremities: Present: normal Incision: Present: dressed
[2017-07-18] MEDS: PRENATAL VITAMIN PO SCH ×3 (10:45→15:27)
[2017-07-18] MEDS: FEOSOL PO SCH (10:48)
[2017-07-18] MEDS: COLACE PO SCH ×2 (10:48→21:21)
[2017-07-19] MEDS: MOTRIN PO PRN ×2 (01:26→08:49)
[2017-07-19] MEDS: PERCOCET 5/325 PO PRN (05:34)
[2017-07-19] MEDS ORDERED: TORADOL PO PRN (08:19)
--- NOTE | 2017-07-19 08:19 | Progress Note ---
Assessment and Plan O: VSS AF PP H/H: 10.6/32.2 A: Stable PP Day 3 S/P primary C/S twins, malpresentation. PPROM P: Pain leo't D/C home Subjective - Subjective Date of service: 07/19/17 Principal diagnosis: [place]-di twins; Shortened Cervix; Pyelectasis Patient reports: appetite normal, voiding normally, pain poorly controlled ( controlled prior, increase this am), ambulating normally : doing well, in NICU Objective - Vital Signs Latest vital signs: Vital Signs Temp Pulse Resp BP Pulse Ox 07/19/17 00:05 98.1 F 76 18 105/66 07/18/17 17:30 97.7 F 94 H 18 119/65 97 07/18/17 15:49 20 07/18/17 10:58 20 07/18/17 10:57 20 07/18/17 09:08 97.2 F L 95 H 18 115/75 99 Intake and Output 07/18/17 07/19/17 07/19/17 22:59 06:59 14:59 Intake Total 240 Balance 240 Intake: Oral 240 Other: Total, Intake Amount 240 # Voids Void 1 - Exam Breasts: Present: deferred Abdomen: Present: normal appearance, soft. Absent: distention Uterus: Present: normal, firm, fundal height below umbilicus. Absent: bogginess Extremities: Present: normal Incision: Present: normal, dry, intact, other (see)
--- NOTE | 2017-07-19 08:21 | Discharge Summary ---
Providers - Providers Date of Admission: 06/21/17 15:15 Date of discharge: 07/19/17 Attending physician: WESLEY HENDERSON MD 06/21/17 17:32 Consult to Physician [CONS] Routine Consulting Provider: MILAN FOSTER Reason For Exam: [place]-Di twin at 21w6d, Incompetent Cervix Place consult to:: NICU CHARGE Notified:: TERRI Phone number called:: [phone] Was contact made?: Yes If yes, spoke with:: TERRI Time called:: 09:35 Primary care physician: WESLEY HENDERSON MD Hospitalization Reason for admission: IUP - , other (twins) Delivery: Procedure: primary low transverse Episiotomy: none Incision: normal, dry, intact, other (see) Other procedures: none complications: none Discharge diagnosis: delivery [place] baby: twins Condition at discharge: Good Disposition: DC-01 TO HOME OR SELFCARE Plan - Discharge Medications Prescriptions: Ferrous Sulfate [Feosol 325 MG tab] 325 mg PO BID #60 tablet Ibuprofen [Motrin] 800 mg PO Q8HR PRN #30 tablet PRN Reason: Pain oxyCODONE /ACETAMINOPHEN [Percocet 5/325] 1 tab PO Q6HR PRN #40 tablet PRN Reason: Pain - Provider Discharge Summary Activity: routine, no sex for 6 weeks, no heavy lifting 4 weeks, no strenuous exercise Diet: routine Instructions: routine Additional instructions: [] Smoking cessation referral if applicable(refer to patient education folder for contact #) [] Refer to [facility]'s [facility] Booklet Call your doctor immediately for: * Fever > 100.5 * Heavy vaginal bleeding ( >1 pad per hour) * Severe persistent headache * Shortness of breath * Reddened, hot, painful area to leg or breast * Drainage or odor from incision. * Keep incision clean and dry at all times and follow doctor's instructions regarding bathing/showering - Follow up plan Follow up: WESLEY HENDERSON MD [Primary Care Provider] - 7 Days
[2017-07-19] MEDS ORDERED: DILAUDID PO NR (08:24)
[2017-07-19] MEDS: PRENATAL VITAMIN PO SCH (08:51)
[2017-07-19] MEDS: FEOSOL PO SCH (08:51)
[2017-07-19 15:21] VITALS: BP 103/63
== END 2017-07-19 13:50 | disposition home or self-care (01) | DRG 765 ==
LOC: UNDOADMIN 15:15 → LD 15:15 → APU 15:15 → UNDOADMIN 07-16 07:53 → APU 07-16 07:53 → OB 07-16 12:33
PROVIDERS: ADMIT Obstetrics & Gynecology; ATTEND Obstetrics & Gynecology
PROC: 10D00Z1 Extraction of Products of Conception, Low, Open Approach (ICD-10-PCS; principal; 2017-07-16)
PROC: 3E0234Z Introduction of Serum, Toxoid and Vaccine into Muscle, Percutaneous Approach (ICD-10-PCS; 2017-07-17)
DX: O34.32 Maternal care for cervical incompetence, second trimester (principal); O60.14X0 Preterm labor third trimester with preterm delivery third trimester, not applicable or unspecified; O30.032 Twin pregnancy, monochorionic/diamniotic, second trimester; O32.1XX0 Maternal care for breech presentation, not applicable or unspecified; O99.214 Obesity complicating childbirth; E66.01 Morbid (severe) obesity due to excess calories; O24.429 Gestational diabetes mellitus in childbirth, unspecified control; K21.9 Gastro-esophageal reflux disease without esophagitis; O99.62 Diseases of the digestive system complicating childbirth; O26.872 Cervical shortening, second trimester; O42.912 Preterm premature rupture of membranes, unspecified as to length of time between rupture and onset of labor, second trimester; O99.89 Other specified diseases and conditions complicating pregnancy, childbirth and the puerperium; N13.30 Unspecified hydronephrosis; O90.81 Anemia of the puerperium; D64.9 Anemia, unspecified; Z37.2 Twins, both liveborn; Z23 Encounter for immunization; Z68.41 Body mass index [BMI] 40.0-44.9, adult; Z80.9 Family history of malignant neoplasm, unspecified; Z3A.25 25 weeks gestation of pregnancy; O32.2XX0 Maternal care for transverse and oblique lie, not applicable or unspecified
CPT/HCPCS: 36415; 76815; 76816; 85014; 85018; 85025; 85027; 86850; 86900; 86901; 87116; 88305; 99211; A6250; C9250; G0463; J0290; J0690; J0702; J1170; J1885; J2270; J2274; J2370; J2405; J2590; J2765; J7120; J7121